=== PATIENT | male | born 1945 | race Hispanic/Latino ===

== ENCOUNTER 2017-10-11 11:35 | Inpatient (IN) | payer MEDICARE ==
[2017-10-11 11:49] VITALS: BMI 19.3
[2017-10-11] MEDS ORDERED: Piperacill/Tazo 4.5gm in Dex 4.5 GM/100 ML BAG IVPB STA (12:05)
[2017-10-11 12:28] LABS: BASO # 0.1 K/uL (0.0-0.2); BASO % 0.5 % (0.0-2.0); HEMATOCRIT 43.7 % (35.0-51.0); LYMPH # 2.1 K/uL (1.0-4.3); LYMPH % 17.3 % (20.0-40.0); MEAN CORPUSCULAR HEMOGLOBIN 28.3 pg (27.0-31.0); MEAN CORPUSCULAR HGB CONC 32.5 g/dL (33.0-37.0); MEAN PLATELET VOLUME 8.5 fL (7.2-11.7); MONO # 1.3 K/uL (0.0-0.8); NRBC % 0.1 % (0.0-2.0); PLATELET COUNT 307 K/uL (130-400); RED CELL DISTRIBUTION WIDTH 15.8 % (11.5-14.5); VENOUS BLOOD GAS BASE EXCESS -2.9 mmol/L (0.0-2.0); VENOUS BLOOD GAS PCO2 41 mmHg (40-60); VENOUS BLOOD PH 7.35 (7.32-7.43); WHITE BLOOD COUNT 11.9 K/uL (4.8-10.8)
[2017-10-11 12:36] LABS: INR 1.4
[2017-10-11 12:49] LABS: ABG ALLEN TEST POS; DRAW SITE LR
[2017-10-11 12:58] LABS: METAMYELOCYTE 1 % (0-0); NEUTROPHIL 30 % (50-75); TOTAL CELLS COUNTED 100
[2017-10-11 13:13] LABS: BILIRUBIN,TOTAL 1.1 mg/dL (0.2-1.3); CALCIUM 8.2 mg/dl (8.6-10.4); TOTAL PROTEIN 5.8 g/dL (6.3-8.3)
[2017-10-11 13:14] LABS: RBC URINE 2 /hpf (0-3); URINE BACTERIA OCC (<OCC); URINE BILIRUBIN NEGATIVE (NEGATIVE); URINE BLOOD NEGATIVE (NEGATIVE); URINE COLOR Amber (YELLOW); URINE GLUCOSE (UA) NORMAL (Normal); URINE KETONE NEGATIVE (NEGATIVE); URINE LEUKOCYTE ESTERASE TRACE Leu/uL (Negative); URINE PROTEIN 1+ mg/dL (NEGATIVE); URINE UROBILINOGEN NORMAL mg/dL (0.2-1.0); WBC URINE 7 /hpf (0-5)
[2017-10-11 13:16] LABS: ALB/GLOB RATIO 0.7 (1.0-2.1); PHOSPHOROUS 4.2 mg/dL (2.5-4.5); POTASSIUM 3.9 mmol/L (3.6-5.2)
--- NOTE | 2017-10-11 13:34 | RAD ---
HISTORY: Sepsis Patient COMPARISON: No prior. FINDINGS: LUNGS: There are low lung volumes. There is dense consolidation in the right mid lung and lower lobe. PLEURA: No large pleural effusions, no pneumothorax apparent. CARDIOVASCULAR: Normal. OSSEOUS STRUCTURES: No significant abnormalities. VISUALIZED UPPER ABDOMEN: Normal. OTHER FINDINGS: None. IMPRESSION: Right lower lobe pneumonia. Follow-up is advised.
--- NOTE | 2017-10-11 16:24 | CP.PCM.CON ---
History of Present Illness - History of Present Illness History of Present Illness: 72 year old male who was brought in by ambulance from a [facility] after he was found to be febrile with altered mental status, and low oxygen saturation of 86% on 100% NRB mask. Patient had recent placement of peg tube with drain. While in the ED, patient received Vancomycin 1g IV. At bedside, patient was saturating 95% with an FiO2 of 80% on BIPAP, requiring care in the ICU. Patient is able to follow commands. Patient was unable to provide history. Past Patient History - Infectious Disease Hx of Infectious Diseases: None - Past Social History Smoking Status: Unknown If Ever Smoked - CARDIAC Hx Hypertension: Yes - NEUROLOGICAL HX Cerebrovascular Accident: Yes Hx Dementia: Yes Other/Comment: Aphasia. Left sided weakness-. Hemiparesis. Hemiplegia - MUSCULOSKELETAL/RHEUMATOLOGICAL Other/Comment: Hemiplegia. Hemiparesis - PSYCHIATRIC Hx Substance Use: No (unknown) Other/Comment: dementia - SURGICAL HISTORY Other/Comment: Peg Tube Meds Allergies/Adverse Reactions: Allergies Allergy/AdvReac Type Severity Reaction Status Date / Time No Known Allergies Allergy Unverified 10/11/17 11:54 Results - Vital Signs Recent Vital Signs: Last Vital Signs Temp 97.9 F 10/11/17 14:56 Pulse 89 10/11/17 14:56 Resp 32 H 10/11/17 14:56 BP 128/55 L 10/11/17 14:56 Pulse Ox 97 10/11/17 14:56 - Labs Result Diagrams: 10/11/17 12:24 10/11/17 12:57 Labs: Laboratory Results - last 24 hr 10/11/17 10/11/17 10/11/17 12:08 12:24 12:24 WBC 11.9 H RBC 5.02 Hgb 14.2 Hct 43.7 MCV 87.0 MCH 28.3 MCHC 32.5 L RDW 15.8 H Plt Count 307 MPV 8.5 Neut % (Auto) 71.2 Lymph % (Auto) 17.3 L [place] % (Auto) 11.0 H Eos % (Auto) 0.0 Baso % (Auto) 0.5 Neut # 8.5 H Lymph # 2.1 [place] # 1.3 H Eos # 0.0 Baso # 0.1 Neutrophils % (Manual) 30 L Band Neutrophils % 28 H* Lymphocytes % (Manual) 28 Monocytes % (Manual) 12 H Metamyelocytes % 1 H Plasma Cell % (Manual) 1 H Platelet Estimate Normal Anisocytosis (manual) Slight Ovalocytes Slight PT 15.9 H INR 1.4 APTT 30 Puncture Site pCO2 pO2 HCO3 ABG pH ABG Total CO2 ABG O2 Saturation ABG Base Excess Sanjay Test ABG Potassium VBG pH VBG pCO2 VBG HCO3 VBG Total CO2 VBG O2 Sat (Calc) VBG Base Excess VBG Potassium A-a O2 Difference Respiratory Index Sodium Chloride Glucose Lactate Liter Flow FiO2 Crit Value Called To Crit Value Called By Crit Value Read Back Blood Gas Notified Time Potassium Carbon Dioxide Anion Gap BUN Creatinine Est GFR ( Amer) Est GFR (Non-Af Amer) POC Glucose (mg/dL) Random Glucose Calcium Phosphorus Magnesium Total Bilirubin AST ALT Alkaline Phosphatase Total Protein Albumin Globulin Albumin/Globulin Ratio Arterial Blood Potassium Venous Blood Potassium Urine Color Urine Clarity Urine pH Ur Specific [place] Urine Protein Urine Glucose (UA) Urine Ketones Urine Blood Urine Nitrate Urine Bilirubin Urine Urobilinogen Ur Leukocyte Esterase Urine WBC (Auto) Urine RBC (Auto) Ur Squamous Epith Cells Urine Bacteria Hyaline Casts Influenza Typ A,B (EIA) Negative for flu a/b 10/11/17 10/11/17 10/11/17 12:24 12:31 12:44 WBC RBC Hgb Hct MCV MCH MCHC RDW Plt Count MPV Neut % (Auto) Lymph % (Auto) [place] % (Auto) Eos % (Auto) Baso % (Auto) Neut # Lymph # [place] # Eos # Baso # Neutrophils % (Manual) Band Neutrophils % Lymphocytes % (Manual) Monocytes % (Manual) Metamyelocytes % Plasma Cell % (Manual) Platelet Estimate Anisocytosis (manual) Ovalocytes PT INR APTT Puncture Site Lr pCO2 30 L pO2 24 L 92 HCO3 20.6 L ABG pH 7.39 ABG Total CO2 19.1 L ABG O2 Saturation 99.1 H ABG Base Excess -5.6 L Sanjay Test Pos ABG Potassium 3.3 L VBG pH 7.35 VBG pCO2 41 VBG HCO3 21.1 VBG Total CO2 23.9 VBG O2 Sat (Calc) 38.6 L VBG Base Excess -2.9 L VBG Potassium 4.1 A-a O2 Difference 584.0 Respiratory Index 6.3 Sodium 147.0 145.0 Chloride 109.0 H 112.0 H Glucose 134 H 134 H Lactate 4.6 H* 5.2 H* Liter Flow 15.0 FiO2 100.0 Crit Value Called To Dr radha maza Crit Value Called By Tiki paul mailing section clerk Tiki paul mailing section clerk Crit Value Read Back Y Y Blood Gas Notified Time 1228 1250 Potassium Carbon Dioxide Anion Gap BUN Creatinine Est GFR ( Amer) Est GFR (Non-Af Amer) POC Glucose (mg/dL) 137 H Random Glucose Calcium Phosphorus Magnesium Total Bilirubin AST ALT Alkaline Phosphatase Total Protein Albumin Globulin Albumin/Globulin Ratio Arterial Blood Potassium 3.3 L Venous Blood Potassium 4.1 Urine Color Urine Clarity Urine pH Ur Specific [place] Urine Protein Urine Glucose (UA) Urine Ketones Urine Blood Urine Nitrate Urine Bilirubin Urine Urobilinogen Ur Leukocyte Esterase Urine WBC (Auto) Urine RBC (Auto) Ur Squamous Epith Cells Urine Bacteria Hyaline Casts Influenza Typ A,B (EIA) 10/11/17 10/11/17 12:54 12:57 WBC RBC Hgb Hct MCV MCH MCHC RDW Plt Count MPV Neut % (Auto) Lymph % (Auto) [place] % (Auto) Eos % (Auto) Baso % (Auto) Neut # Lymph # [place] # Eos # Baso # Neutrophils % (Manual) Band Neutrophils % Lymphocytes % (Manual) Monocytes % (Manual) Metamyelocytes % Plasma Cell % (Manual) Platelet Estimate Anisocytosis (manual) Ovalocytes PT INR APTT Puncture Site pCO2 pO2 HCO3 ABG pH ABG Total CO2 ABG O2 Saturation ABG Base Excess [place] Test ABG Potassium VBG pH VBG pCO2 VBG HCO3 VBG Total CO2 VBG O2 Sat (Calc) VBG Base Excess VBG Potassium A-a O2 Difference Respiratory Index Sodium 143 Chloride 113 H Glucose Lactate Liter Flow FiO2 Crit Value Called To Crit Value Called By Crit Value Read Back Blood Gas Notified Time Potassium 3.9 Carbon Dioxide 22 Anion Gap 12 BUN 42 H Creatinine 2.6 H Est GFR ( Amer) 30 Est GFR (Non-Af Amer) 24 POC Glucose (mg/dL) Random Glucose 125 H Calcium 8.2 L Phosphorus 4.2 Magnesium 2.0 Total Bilirubin 1.1 AST 42 ALT 49 Alkaline Phosphatase 43 Total Protein 5.8 L Albumin 2.3 L Globulin 3.4 Albumin/Globulin Ratio 0.7 L Arterial Blood Potassium Venous Blood Potassium Urine Color Aliza Urine Clarity Clear Urine pH 5.0 Ur Specific [place] 1.021 Urine Protein 1+ H Urine Glucose (UA) Normal Urine Ketones Negative Urine Blood Negative Urine Nitrate Negative Urine Bilirubin Negative Urine Urobilinogen Normal Ur Leukocyte Esterase Trace Urine WBC (Auto) 7 H Urine RBC (Auto) 2 Ur Squamous Epith Cells < 1 Urine Bacteria Occ H Hyaline Casts 3-5 H Influenza Typ A,B (EIA) Assessment & Plan - Assessment and Plan (Free Text) Assessment: Patient is a 72 year old male presenting to the hospital for fever, altered mental status and low oxygenation saturation. He was saturating at 95% despite 80% of FiO2 on BIPAP, requiring admission to ICU for further evaluation. Sepsis: ID: Febrile to 101.4 WBC 11.9 with bands of 28 Lactate 4.6 --> 5.2 Blood cultures x2 pending Urine cultures pending ABx: vanco + zosyn ID consulted, help appreciated? Pulmonary: CXR from 10/11/17: Right lower lobe pneumonia AB.39/30/92/20.6 Hypoxic respiratory failure, suspect aspiration, peg to gravity drain negative for influenza a/b Renal: BUN 42/Cr 2.6 -YUE: place [place] and continue gentle hydration, avoid any nephrotoxic drugs Prophylactic care: DVTs: SCDs, Lovenox 40mg SC daily? GI: Protonix 40mg IVP daily d/w daughter who had been the health care agent. Daughter requested DNR/DNI, (witnessed by ARSEN Claros) cc time - Date & Time Date: 10/11/17 Time: 17:56
[2017-10-11 16:29] LABS: ABG ALLEN TEST POS; DRAW SITE RBA
--- NOTE | 2017-10-11 16:47 | C.PDOC ---
History Of Present Illness 72 y/o male sent to ED from long term after being found lethargic, febrile, tachycardic, and hypotensive. In the ER, pt is unresponsive. Limited history at this time. Time Seen by Provider: 10/11/17 11:55 Chief Complaint (Nursing): Respiratory Distress History Per: Patient History/Exam Limitations: Clinical Condition Additional History Per: [facility] Past Medical History Reviewed: Historical Data, Nursing Documentation, Vital Signs Vital Signs: Last Vital Signs Temp 97.9 F 10/11/17 14:56 Pulse 89 10/11/17 16:10 Resp 32 H 10/11/17 14:56 BP 128/55 L 10/11/17 14:56 Pulse Ox 97 10/11/17 16:59 - Medical History PMH: Dementia, HTN, Hyperlipidemia Family History: States: Unknown Family Hx - Social History Hx Alcohol Use: No (unknown) Hx Substance Use: No (unknown) - Immunization History Hx Tetanus Toxoid Vaccination: (unknown) Hx Influenza Vaccination: (unknown) Hx Pneumococcal Vaccination: (unknown) Review Of Systems Review Of Systems: ROS cannot be obtained secondary to pt's inabilty to answer questions. Physical Exam - Physical Exam Appears: Non-toxic, Other (moderate to severe respiratory distress) Skin: Normal Color, Warm, Dry Head: Atraumatic, Normacephalic Eye(s): bilateral: Normal Inspection Oral Mucosa: Moist Chest: Symmetrical Cardiovascular: Other (tachycardic) Respiratory: No Rales, No Rhonchi, No Wheezing, Other (coarse breath sounds bilaterally, right more than left) Gastrointestinal/Abdominal: Bowel Sounds, Soft, No Tenderness, Other (peg tube intact) Extremity: Normal ROM, Pedal Edema Neurological/Psych: Other (not responding to verbal stimuli) ED Course And Treatment - Laboratory Results Result Diagrams: 10/11/17 12:24 10/11/17 12:57 O2 Sat by Pulse Oximetry: 97 Pulse Ox Interpretation: Normal Progress Note: Blood work, UA, influenza AB, CXR, EKG ordered and reviewed. Pt was given Zosyn, Vancomycin, and Tylenol. Spoke to daughter, informed pt is full code. Spoke with paper stacker diffusion furnace operator. Pt reported to resuscitation and antipyretics. Pt was placed on BIPAP. Pt will be admitted to ICU under Dr. Jack Trinh's service. Critical Care Time - Critical Care Note Total Time (in mins): 60 Documented critical care: time excludes all time spent performing seperately billable procedures. Disposition - Disposition Disposition: HOSPITALIZED Disposition Time: 13:30 Condition: SERIOUS - Clinical Impression Clinical Impression: Sepsis, Pneumonia, Hypotension, Respiratory failure - Scribe Statement The provider has reviewed the documentation as recorded by the Juaniibe Marily Trinh All medical record entries made by the Juaniibdevorah were at my direction and personally dictated by me. I have reviewed the chart and agree that the record accurately reflects my personal performance of the history, physical exam, medical decision making, and the department course for this patient. I have also personally directed, reviewed, and agree with the discharge instructions and disposition.
--- NOTE | 2017-10-11 17:38 | CP.PCM.HP ---
Past Patient History - Infectious Disease Hx of Infectious Diseases: None - Past Social History Smoking Status: Unknown If Ever Smoked - CARDIAC Hx Hypertension: Yes - NEUROLOGICAL Hx Dementia: Yes - MUSCULOSKELETAL/RHEUMATOLOGICAL Other/Comment: Hemiplegia. Hemiparesis - PSYCHIATRIC Hx Substance Use: No (unknown) - SURGICAL HISTORY Other/Comment: Peg Tube Meds Allergies/Adverse Reactions: Allergies Allergy/AdvReac Type Severity Reaction Status Date / Time No Known Allergies Allergy Unverified 10/11/17 11:54 Results - Vital Signs Recent Vital Signs: Last Vital Signs Temp 97.9 F 10/11/17 14:56 Pulse 89 10/11/17 16:10 Resp 32 H 10/11/17 14:56 BP 128/55 L 10/11/17 14:56 Pulse Ox 97 10/11/17 16:59 - Labs Result Diagrams: 10/11/17 12:24 10/11/17 12:57 Labs: Laboratory Results - last 24 hr 10/11/17 10/11/17 10/11/17 12:08 12:24 12:24 WBC 11.9 H RBC 5.02 Hgb 14.2 Hct 43.7 MCV 87.0 MCH 28.3 MCHC 32.5 L RDW 15.8 H Plt Count 307 MPV 8.5 Neut % (Auto) 71.2 Lymph % (Auto) 17.3 L [place] % (Auto) 11.0 H Eos % (Auto) 0.0 Baso % (Auto) 0.5 Neut # 8.5 H Lymph # 2.1 [place] # 1.3 H Eos # 0.0 Baso # 0.1 Neutrophils % (Manual) 30 L Band Neutrophils % 28 H* Lymphocytes % (Manual) 28 Monocytes % (Manual) 12 H Metamyelocytes % 1 H Plasma Cell % (Manual) 1 H Platelet Estimate Normal Anisocytosis (manual) Slight Ovalocytes Slight PT 15.9 H INR 1.4 APTT 30 Puncture Site pCO2 pO2 HCO3 ABG pH ABG Total CO2 ABG O2 Saturation ABG Base Excess Sanjay Test ABG Potassium VBG pH VBG pCO2 VBG HCO3 VBG Total CO2 VBG O2 Sat (Calc) VBG Base Excess VBG Potassium A-a O2 Difference Respiratory Index Sodium Chloride Glucose Lactate Liter Flow FiO2 Inspiratory BiPAP Expiratory BiPAP Crit Value Called To Crit Value Called By Crit Value Read Back Blood Gas Notified Time Potassium Carbon Dioxide Anion Gap BUN Creatinine Est GFR ( Amer) Est GFR (Non-Af Amer) POC Glucose (mg/dL) Random Glucose Calcium Phosphorus Magnesium Total Bilirubin AST ALT Alkaline Phosphatase Total Protein Albumin Globulin Albumin/Globulin Ratio Arterial Blood Potassium Venous Blood Potassium Urine Color Urine Clarity Urine pH Ur Specific [place] Urine Protein Urine Glucose (UA) Urine Ketones Urine Blood Urine Nitrate Urine Bilirubin Urine Urobilinogen Ur Leukocyte Esterase Urine WBC (Auto) Urine RBC (Auto) Ur Squamous Epith Cells Urine Bacteria Hyaline Casts Influenza Typ A,B (EIA) Negative for flu a/b 10/11/17 10/11/17 10/11/17 12:24 12:31 12:44 WBC RBC Hgb Hct MCV MCH MCHC RDW Plt Count MPV Neut % (Auto) Lymph % (Auto) [place] % (Auto) Eos % (Auto) Baso % (Auto) Neut # Lymph # [place] # Eos # Baso # Neutrophils % (Manual) Band Neutrophils % Lymphocytes % (Manual) Monocytes % (Manual) Metamyelocytes % Plasma Cell % (Manual) Platelet Estimate Anisocytosis (manual) Ovalocytes PT INR APTT Puncture Site Lr pCO2 30 L pO2 24 L 92 HCO3 20.6 L ABG pH 7.39 ABG Total CO2 19.1 L ABG O2 Saturation 99.1 H ABG Base Excess -5.6 L Sanjay Test Pos ABG Potassium 3.3 L VBG pH 7.35 VBG pCO2 41 VBG HCO3 21.1 VBG Total CO2 23.9 VBG O2 Sat (Calc) 38.6 L VBG Base Excess -2.9 L VBG Potassium 4.1 A-a O2 Difference 584.0 Respiratory Index 6.3 Sodium 147.0 145.0 Chloride 109.0 H 112.0 H Glucose 134 H 134 H Lactate 4.6 H* 5.2 H* Liter Flow 15.0 FiO2 100.0 Inspiratory BiPAP Expiratory BiPAP Crit Value Called To Dr radha maza Crit Value Called By Tiki paul brick tester Tiki paul brick tester Crit Value Read Back Y Y Blood Gas Notified Time 1228 1250 Potassium Carbon Dioxide Anion Gap BUN Creatinine Est GFR ( Amer) Est GFR (Non-Af Amer) POC Glucose (mg/dL) 137 H Random Glucose Calcium Phosphorus Magnesium Total Bilirubin AST ALT Alkaline Phosphatase Total Protein Albumin Globulin Albumin/Globulin Ratio Arterial Blood Potassium 3.3 L Venous Blood Potassium 4.1 Urine Color Urine Clarity Urine pH Ur Specific [place] Urine Protein Urine Glucose (UA) Urine Ketones Urine Blood Urine Nitrate Urine Bilirubin Urine Urobilinogen Ur Leukocyte Esterase Urine WBC (Auto) Urine RBC (Auto) Ur Squamous Epith Cells Urine Bacteria Hyaline Casts Influenza Typ A,B (EIA) 10/11/17 10/11/17 10/11/17 12:54 12:57 16:25 WBC RBC Hgb Hct MCV MCH MCHC RDW Plt Count MPV Neut % (Auto) Lymph % (Auto) [place] % (Auto) Eos % (Auto) Baso % (Auto) Neut # Lymph # [place] # Eos # Baso # Neutrophils % (Manual) Band Neutrophils % Lymphocytes % (Manual) Monocytes % (Manual) Metamyelocytes % Plasma Cell % (Manual) Platelet Estimate Anisocytosis (manual) Ovalocytes PT INR APTT Puncture Site Rba pCO2 32 L pO2 69 L HCO3 23.0 ABG pH 7.43 ABG Total CO2 22.2 ABG O2 Saturation 96.7 ABG Base Excess -2.3 L Sanjay Test Pos ABG Potassium 3.3 L VBG pH VBG pCO2 VBG HCO3 VBG Total CO2 VBG O2 Sat (Calc) VBG Base Excess VBG Potassium A-a O2 Difference 319.0 Respiratory Index 4.6 Sodium 143 145.0 Chloride 113 H 113.0 H Glucose 162 H Lactate 3.3 H Liter Flow FiO2 60.0 Inspiratory BiPAP 12 Expiratory BiPAP 6 Crit Value Called To Crit Value Called By Crit Value Read Back Blood Gas Notified Time Potassium 3.9 Carbon Dioxide 22 Anion Gap 12 BUN 42 H Creatinine 2.6 H Est GFR ( Amer) 30 Est GFR (Non-Af Amer) 24 POC Glucose (mg/dL) Random Glucose 125 H Calcium 8.2 L Phosphorus 4.2 Magnesium 2.0 Total Bilirubin 1.1 AST 42 ALT 49 Alkaline Phosphatase 43 Total Protein 5.8 L Albumin 2.3 L Globulin 3.4 Albumin/Globulin Ratio 0.7 L Arterial Blood Potassium 3.3 L Venous Blood Potassium Urine Color Aliza Urine Clarity Clear Urine pH 5.0 Ur Specific [place] 1.021 Urine Protein 1+ H Urine Glucose (UA) Normal Urine Ketones Negative Urine Blood Negative Urine Nitrate Negative Urine Bilirubin Negative Urine Urobilinogen Normal Ur Leukocyte Esterase Trace Urine WBC (Auto) 7 H Urine RBC (Auto) 2 Ur Squamous Epith Cells < 1 Urine Bacteria Occ H Hyaline Casts 3-5 H Influenza Typ A,B (EIA)
[2017-10-11] MEDS ORDERED: Sodium Chloride 0.9% 1,000 ML IV SCH (18:00)
--- NOTE | 2017-10-11 19:53 | PCM.SEPTIC ---
<Nicola Torres - Last Filed: 10/11/17 19:51> Sepsis Progress Note - Reassessment Type Date of Evaluation: 10/11/17 Time of Evaluation: 16:00 Reassessment Type: Non-invasive reassessment - Non Invasive Reassessment Were the most recent vital sign reviewed: Yes Vital Sign (Latest): Temp Pulse Resp BP Pulse Ox 97.3 F L 89 28 H 128/55 L 97 10/11/17 15:36 10/11/17 16:10 10/11/17 15:35 10/11/17 14:56 10/11/17 18:16 Cardiovascular: Yes: Regular Rate, Rhythm, Chest Non Tender Respiratory: Yes: Normal Breath Sounds. No: Accessory Muscle Use, Crackles, Rales, Rhonchi, Respiratory Distress Capillary Refill: Normal (Less than 2 sec) Pulses: Normal Radial, Normal Dorsalis Pedis, Normal Posterior Tibialis Skin: Normal Color, Warm <Janis Trinh M - Last Filed: 10/12/17 07:15> Sepsis Progress Note - Non Invasive Reassessment Vital Sign (Latest): Temp Pulse Resp BP Pulse Ox 97.8 F 86 21 130/75 97 10/12/17 04:00 10/12/17 04:30 10/12/17 04:30 10/12/17 04:06 10/12/17 04:30
[2017-10-11] MEDS: Piperacill/Tazo 2.25gm in Dex 2.25 GM/50 ML BAG IVPB SCH (21:17)
[2017-10-12] MEDS: Piperacill/Tazo 2.25gm in Dex 2.25 GM/50 ML BAG IVPB SCH ×3 (04:47→21:00)
[2017-10-12 06:19] LABS: BASO % 0.6 % (0.0-2.0); EOS # 0.1 K/uL (0.0-0.7); EOS % 0.7 % (0.0-4.0); HEMATOCRIT 37.3 % (35.0-51.0); LYMPH # 1.3 K/uL (1.0-4.3); LYMPH % 17.9 % (20.0-40.0); MEAN CELL VOLUME 87.1 fL (80.0-94.0); MEAN CORPUSCULAR HEMOGLOBIN 29.1 pg (27.0-31.0); MEAN CORPUSCULAR HGB CONC 33.4 g/dL (33.0-37.0); MEAN PLATELET VOLUME 8.3 fL (7.2-11.7); MONO # 0.9 K/uL (0.0-0.8); MONO % 11.8 % (0.0-10.0); NRBC % 0.1 % (0.0-2.0); RED CELL DISTRIBUTION WIDTH 15.5 % (11.5-14.5); WHITE BLOOD COUNT 7.5 K/uL (4.8-10.8)
[2017-10-12 06:27] LABS: ALB/GLOB RATIO 0.7 (1.0-2.1); BILIRUBIN,TOTAL 0.7 mg/dL (0.2-1.3); MAGNESIUM 1.9 mg/dL (1.6-2.3); PHOSPHOROUS 4.4 mg/dL (2.5-4.5); POTASSIUM 3.3 mmol/L (3.6-5.2); TOTAL PROTEIN 5.6 g/dL (6.3-8.3)
[2017-10-12] MEDS ORDERED: Potassium Chloride 20 mEq/15 ml LIQ UD GT ONE (08:30)
--- NOTE | 2017-10-12 08:58 | RAD ---
Chest x-ray single frontal view History: Congestion. Comparison: 10/11/2017 Findings: Moderate venous congestion. Diffuse confluent consolidative changes seen throughout the right mid to lower lung zone as well as the left hilar region and left lung base. Biapical pleural thickening. Surgical clips project over the medial left hemithorax. Degenerative changes in the spine. Heart size within normal limits. Impression : Moderate venous congestion. Diffuse confluent consolidative changes seen throughout the right mid to lower lung zone as well as the left hilar region and left lung base. Biapical pleural thickening. Surgical clips project over the medial left hemithorax.
--- NOTE | 2017-10-12 14:39 | CP.CCUPN ---
CCU Subjective - Physician Review Subjective (Free Text): 10/12/17 14:37 PAtient tolerated bi-pap overnight, toleraring aerosol mask. no fevers overnight , lasix given over night CCU Objective - Vital Signs / Intake & Output Vital Signs (Last 4 hours): Vital Signs Temp Pulse BP Pulse Ox 10/12/17 12:06 115 H 108/64 89 L 10/12/17 12:00 98.0 F 103 H 87 L 10/12/17 11:05 107 H 144/89 89 L 10/12/17 11:00 101 H 94 L Intake and Output (Last 8hrs): Intake & Output 10/11/17 10/12/17 10/12/17 22:59 06:59 14:59 Intake Total 505 540 140 Output Total 155 755 380 Balance 350 -215 -240 Weight 133 lb 2.547 oz Intake: Intake, IV Amount 505 540 140 Right Antecubital 505 540 140 Oral 0 Output: Gastric Amount 300 Stomach 300 Urine 155 455 380 Urethral (Manley) 155 455 380 Emesis 0 Other: Voiding Method Indwelling Catheter # Bowel Movements 0 0 - Physical Exam Physical Exam Limitations: Positive for: Altered Mental Status, Uncooperative Mouth: Positive for: Moist Mucous Membranes Respiratory/Chest: Positive for: Good Air Exchange, Rhonchi, Tachypneic Cardiovascular: Positive for: Regular Rate and Rhythm, Murmurs, Normal S1, S2 Abdomen: Positive for: Normal Bowel Sounds, Other (PEG Tube in place) Other physical findings (Free Text): Left sided hemiplegia - Medications Active Medications: Active Medications Generic Name Dose Route Start Last Admin Trade Name Freq PRN Reason Stop Dose Admin Aspirin 81 mg 10/12/17 10:00 10/12/17 09:16 Ecotrin PO 81 mg DAILY SHAHRZAD Administration Bisacodyl 10 mg 10/12/17 08:23 10/12/17 09:16 Dulcolax [place] 10 mg DAILY PRN Administration Constipation Famotidine 20 mg 10/12/17 10:00 10/12/17 09:16 Pepcid PO 20 mg DAILY SHAHRZAD Administration Heparin Sodium (Porcine) 5,000 units 10/11/17 18:15 10/12/17 05:26 Heparin SC 5,000 units Q12H SHAHRZAD Administration Piperacillin Sod/Tazobactam Sod 2.25 gm in 50 mls @ 100 mls/hr 10/11/17 21:00 10/12/17 12:43 Zosyn 2.25 Gm Iv Premix IVPB 100 mls/hr Q8H SHAHRZAD Administration Rosuvastatin Calcium 5 mg 10/12/17 22:00 Crestor PO HS SHAHRZAD - Patient Studies Lab Studies: Microbiology Studies 10/11/17 12:05 Urine Culture - Final Urine,Manley No Growth (<1,000 CFU/ML) Lab Studies 10/12/17 10/12/17 10/12/17 Range/Units 12:08 06:00 06:00 WBC 7.5 (4.8-10.8) K/uL RBC 4.28 L (4.40-5.90) Mil/uL Hgb 12.5 (12.0-18.0) g/dL Hct 37.3 (35.0-51.0) % MCV 87.1 (80.0-94.0) fL MCH 29.1 (27.0-31.0) pg MCHC 33.4 (33.0-37.0) g/dL RDW 15.5 H (11.5-14.5) % Plt Count 190 D (130-400) K/uL MPV 8.3 (7.2-11.7) fL Neut % (Auto) 69.0 (50.0-75.0) % Lymph % (Auto) 17.9 L (20.0-40.0) % [place] % (Auto) 11.8 H (0.0-10.0) % Eos % (Auto) 0.7 (0.0-4.0) % Baso % (Auto) 0.6 (0.0-2.0) % Neut # 5.1 (1.8-7.0) K/uL Lymph # 1.3 (1.0-4.3) K/uL [place] # 0.9 H (0.0-0.8) K/uL Eos # 0.1 (0.0-0.7) K/uL Baso # 0.0 (0.0-0.2) K/uL Puncture Site pCO2 (35-45) mm/Hg pO2 (80-100) mm/Hg HCO3 (21-28) mmol/L ABG pH (7.35-7.45) ABG Total CO2 (22-28) mmol/L ABG O2 Saturation (95-98) % ABG Base Excess (-2.0-3.0) mmol/L Sanjay Test ABG Potassium (3.6-5.2) mmol/L A-a O2 Difference mm/Hg Respiratory Index Sodium 145 (132-148) mmol/l Chloride 113 H (98-107) mmol/L Glucose (75-110) mg/dl Lactate (0.7-2.1) mmol/L FiO2 % Inspiratory BiPAP Expiratory BiPAP Potassium 3.3 L (3.6-5.2) mmol/L Carbon Dioxide 27 (22-30) mmol/L Anion Gap 9 L (10-20) BUN 54 H (9-20) mg/dL Creatinine 1.8 H (0.8-1.5) mg/dL Est GFR ( Amer) 45 Est GFR (Non-Af Amer) 37 POC Glucose (mg/dL) 112 H (65-110) mg/dL Random Glucose 112 H (75-110) mg/dL Lactic Acid (0.7-2.1) mmol/L Calcium 8.0 L (8.6-10.4) mg/dl Phosphorus 4.4 (2.5-4.5) mg/dL Magnesium 1.9 (1.6-2.3) mg/dL Total Bilirubin 0.7 (0.2-1.3) mg/dL AST 41 (17-59) U/L ALT 54 (21-72) U/L Alkaline Phosphatase 40 (38-126) U/L Total Protein 5.6 L (6.3-8.3) g/dL Albumin 2.3 L (3.5-5.0) g/dL Globulin 3.3 (2.2-3.9) gm/dL Albumin/Globulin Ratio 0.7 L (1.0-2.1) Arterial Blood Potassium (3.6-5.2) mmol/L Random Vancomycin ug/mL 10/12/17 10/12/17 10/12/17 Range/Units 06:00 06:00 05:54 WBC (4.8-10.8) K/uL RBC (4.40-5.90) Mil/uL Hgb (12.0-18.0) g/dL Hct (35.0-51.0) % MCV (80.0-94.0) fL MCH (27.0-31.0) pg MCHC (33.0-37.0) g/dL RDW (11.5-14.5) % Plt Count (130-400) K/uL MPV (7.2-11.7) fL Neut % (Auto) (50.0-75.0) % Lymph % (Auto) (20.0-40.0) % [place] % (Auto) (0.0-10.0) % Eos % (Auto) (0.0-4.0) % Baso % (Auto) (0.0-2.0) % Neut # (1.8-7.0) K/uL Lymph # (1.0-4.3) K/uL [place] # (0.0-0.8) K/uL Eos # (0.0-0.7) K/uL Baso # (0.0-0.2) K/uL Puncture Site pCO2 (35-45) mm/Hg pO2 (80-100) mm/Hg HCO3 (21-28) mmol/L ABG pH (7.35-7.45) ABG Total CO2 (22-28) mmol/L ABG O2 Saturation (95-98) % ABG Base Excess (-2.0-3.0) mmol/L Sanjay Test ABG Potassium (3.6-5.2) mmol/L A-a O2 Difference mm/Hg Respiratory Index Sodium (132-148) mmol/l Chloride (98-107) mmol/L Glucose (75-110) mg/dl Lactate (0.7-2.1) mmol/L FiO2 % Inspiratory BiPAP Expiratory BiPAP Potassium (3.6-5.2) mmol/L Carbon Dioxide (22-30) mmol/L Anion Gap (10-20) BUN (9-20) mg/dL Creatinine (0.8-1.5) mg/dL Est GFR ( Amer) Est GFR (Non-Af Amer) POC Glucose (mg/dL) 107 (65-110) mg/dL Random Glucose (75-110) mg/dL Lactic Acid 1.8 (0.7-2.1) mmol/L Calcium (8.6-10.4) mg/dl Phosphorus (2.5-4.5) mg/dL Magnesium (1.6-2.3) mg/dL Total Bilirubin (0.2-1.3) mg/dL AST (17-59) U/L ALT (21-72) U/L Alkaline Phosphatase (38-126) U/L Total Protein (6.3-8.3) g/dL Albumin (3.5-5.0) g/dL Globulin (2.2-3.9) gm/dL Albumin/Globulin Ratio (1.0-2.1) Arterial Blood Potassium (3.6-5.2) mmol/L Random Vancomycin 12.83 ug/mL 10/11/17 10/11/17 Range/Units 23:37 16:25 WBC (4.8-10.8) K/uL RBC (4.40-5.90) Mil/uL Hgb (12.0-18.0) g/dL Hct (35.0-51.0) % MCV (80.0-94.0) fL MCH (27.0-31.0) pg MCHC (33.0-37.0) g/dL RDW (11.5-14.5) % Plt Count (130-400) K/uL MPV (7.2-11.7) fL Neut % (Auto) (50.0-75.0) % Lymph % (Auto) (20.0-40.0) % [place] % (Auto) (0.0-10.0) % Eos % (Auto) (0.0-4.0) % Baso % (Auto) (0.0-2.0) % Neut # (1.8-7.0) K/uL Lymph # (1.0-4.3) K/uL [place] # (0.0-0.8) K/uL Eos # (0.0-0.7) K/uL Baso # (0.0-0.2) K/uL Puncture Site Rba pCO2 32 L (35-45) mm/Hg pO2 69 L (80-100) mm/Hg HCO3 23.0 (21-28) mmol/L ABG pH 7.43 (7.35-7.45) ABG Total CO2 22.2 (22-28) mmol/L ABG O2 Saturation 96.7 (95-98) % ABG Base Excess -2.3 L (-2.0-3.0) mmol/L Sanjay Test Pos ABG Potassium 3.3 L (3.6-5.2) mmol/L A-a O2 Difference 319.0 mm/Hg Respiratory Index 4.6 Sodium 145.0 (132-148) mmol/l Chloride 113.0 H (98-107) mmol/L Glucose 162 H (75-110) mg/dl Lactate 3.3 H (0.7-2.1) mmol/L FiO2 60.0 % Inspiratory BiPAP 12 Expiratory BiPAP 6 Potassium (3.6-5.2) mmol/L Carbon Dioxide (22-30) mmol/L Anion Gap (10-20) BUN (9-20) mg/dL Creatinine (0.8-1.5) mg/dL Est GFR ( Amer) Est GFR (Non-Af Amer) POC Glucose (mg/dL) 130 H (65-110) mg/dL Random Glucose (75-110) mg/dL Lactic Acid (0.7-2.1) mmol/L Calcium (8.6-10.4) mg/dl Phosphorus (2.5-4.5) mg/dL Magnesium (1.6-2.3) mg/dL Total Bilirubin (0.2-1.3) mg/dL AST (17-59) U/L ALT (21-72) U/L Alkaline Phosphatase (38-126) U/L Total Protein (6.3-8.3) g/dL Albumin (3.5-5.0) g/dL Globulin (2.2-3.9) gm/dL Albumin/Globulin Ratio (1.0-2.1) Arterial Blood Potassium 3.3 L (3.6-5.2) mmol/L Random Vancomycin ug/mL Laboratory Results - last 24 hr 10/11/17 10/11/17 10/12/17 16:25 23:37 05:54 WBC RBC Hgb Hct MCV MCH MCHC RDW Plt Count MPV Neut % (Auto) Lymph % (Auto) [place] % (Auto) Eos % (Auto) Baso % (Auto) Neut # Lymph # [place] # Eos # Baso # Puncture Site Rba pCO2 32 L pO2 69 L HCO3 23.0 ABG pH 7.43 ABG Total CO2 22.2 ABG O2 Saturation 96.7 ABG Base Excess -2.3 L Sanjay Test Pos ABG Potassium 3.3 L A-a O2 Difference 319.0 Respiratory Index 4.6 Sodium 145.0 Chloride 113.0 H Glucose 162 H Lactate 3.3 H FiO2 60.0 Inspiratory BiPAP 12 Expiratory BiPAP 6 Potassium Carbon Dioxide Anion Gap BUN Creatinine Est GFR ( Amer) Est GFR (Non-Af Amer) POC Glucose (mg/dL) 130 H 107 Random Glucose Lactic Acid Calcium Phosphorus Magnesium Total Bilirubin AST ALT Alkaline Phosphatase Total Protein Albumin Globulin Albumin/Globulin Ratio Arterial Blood Potassium 3.3 L Random Vancomycin 10/12/17 10/12/17 10/12/17 06:00 06:00 06:00 WBC 7.5 RBC 4.28 L Hgb 12.5 Hct 37.3 MCV 87.1 MCH 29.1 MCHC 33.4 RDW 15.5 H Plt Count 190 D MPV 8.3 Neut % (Auto) 69.0 Lymph % (Auto) 17.9 L [place] % (Auto) 11.8 H Eos % (Auto) 0.7 Baso % (Auto) 0.6 Neut # 5.1 Lymph # 1.3 [place] # 0.9 H Eos # 0.1 Baso # 0.0 Puncture Site pCO2 pO2 HCO3 ABG pH ABG Total CO2 ABG O2 Saturation ABG Base Excess Sanjay Test ABG Potassium A-a O2 Difference Respiratory Index Sodium Chloride Glucose Lactate FiO2 Inspiratory BiPAP Expiratory BiPAP Potassium Carbon Dioxide Anion Gap BUN Creatinine Est GFR ( Amer) Est GFR (Non-Af Amer) POC Glucose (mg/dL) Random Glucose Lactic Acid 1.8 Calcium Phosphorus Magnesium Total Bilirubin AST ALT Alkaline Phosphatase Total Protein Albumin Globulin Albumin/Globulin Ratio Arterial Blood Potassium Random Vancomycin 12.83 10/12/17 10/12/17 06:00 12:08 WBC RBC Hgb Hct MCV MCH MCHC RDW Plt Count MPV Neut % (Auto) Lymph % (Auto) [place] % (Auto) Eos % (Auto) Baso % (Auto) Neut # Lymph # [place] # Eos # Baso # Puncture Site pCO2 pO2 HCO3 ABG pH ABG Total CO2 ABG O2 Saturation ABG Base Excess Sanjay Test ABG Potassium A-a O2 Difference Respiratory Index Sodium 145 Chloride 113 H Glucose Lactate FiO2 Inspiratory BiPAP Expiratory BiPAP Potassium 3.3 L Carbon Dioxide 27 Anion Gap 9 L BUN 54 H Creatinine 1.8 H Est GFR ( Amer) 45 Est GFR (Non-Af Amer) 37 POC Glucose (mg/dL) 112 H Random Glucose 112 H Lactic Acid Calcium 8.0 L Phosphorus 4.4 Magnesium 1.9 Total Bilirubin 0.7 AST 41 ALT 54 Alkaline Phosphatase 40 Total Protein 5.6 L Albumin 2.3 L Globulin 3.3 Albumin/Globulin Ratio 0.7 L Arterial Blood Potassium Random Vancomycin EKG/Cardiology Studies: Cardiology / EKG Studies 10/11/17 18:12 EKG [ELECTROCARDIOGRAM] Stat Comment: Mode Of Transportation: PORTABLE Reason For Exam: admission Fingerstick Blood Sugar Results: 112 Assessment/Plan - Assessment and Plan (Free Text) Plan: Hypoxic respiratory failure: continue bi-pap and switch to aerosol mask as tolerated, no signs of Co2 retention -Sepsis not in shock: suspect aspiration: continue broad spectrum abx, serial lactic -YUE: improving creatinine, continue gentle hydration -Tube feeds to be started -CVA: chronic continue asa, statin -dvt ppx heparin -pud ppx pepcid -GOC: daughter requested DNR/DNi Patient remains stable. - Date & Time Date: 10/12/17 Time: 14:44
--- NOTE | 2017-10-12 16:38 | CP.PCM.PN ---
Subjective - Date & Time of Evaluation Date of Evaluation: 10/12/17 Time of Evaluation: 11:40 - Subjective Subjective: clinically same Objective - Vital Signs/Intake and Output Vital Signs (last 24 hours): Temp Pulse Resp BP Pulse Ox 98.1 F 106 H 32 H 146/72 94 L 10/12/17 15:59 10/12/17 16:00 10/12/17 16:00 10/12/17 15:05 10/12/17 16:00 Intake and Output: 10/12/17 10/12/17 06:59 18:59 Intake Total 835 140 Output Total 830 380 Balance 5 -240 - Medications Medications: Current Medications Aspirin (Ecotrin) 81 mg PO DAILY [facility] Last Admin: 10/12/17 09:16 Dose: 81 mg Bisacodyl (Dulcolax) 10 mg [place] DAILY PRN PRN Reason: Constipation Last Admin: 10/12/17 09:16 Dose: 10 mg Famotidine (Pepcid) 20 mg PO DAILY [facility] Last Admin: 10/12/17 09:16 Dose: 20 mg Heparin Sodium (Porcine) (Heparin) 5,000 units SC Q12H [facility] Last Admin: 10/12/17 05:26 Dose: 5,000 units Piperacillin Sod/Tazobactam Sod (Zosyn 2.25 Gm Iv Premix) 2.25 gm in 50 mls @ 100 mls/hr IVPB Q8H [facility] Last Admin: 10/12/17 12:43 Dose: 100 mls/hr Rosuvastatin Calcium (Crestor) 5 mg PO HS [facility] - Labs Labs: 10/12/17 06:00 10/12/17 06:00 PT 15.9 SECONDS (9.7-12.2) H 10/11/17 12:24 INR 1.4 10/11/17 12:24 APTT 30 SECONDS (21-34) 10/11/17 12:24 - Constitutional Appears: Well - Head Exam Head Exam: ATRAUMATIC, NORMAL INSPECTION, NORMOCEPHALIC - Eye Exam Eye Exam: EOMI, Normal appearance, PERRL Pupil Exam: NORMAL ACCOMODATION, PERRL - ENT Exam ENT Exam: Mucous Membranes Moist, Normal Exam - Neck Exam Neck Exam: Full ROM, Normal Inspection. absent: Lymphadenopathy - Respiratory Exam Respiratory Exam: Decreased Breath Sounds - Cardiovascular Exam Cardiovascular Exam: REGULAR RHYTHM, +S1, +S2 - GI/Abdominal Exam GI & Abdominal Exam: Soft, Diminished Bowel Sounds - Rectal Exam Rectal Exam: Deferred
[2017-10-12] MEDS ORDERED: Potassium Chloride 20 mEq/15 ml LIQ UD PO ONE (21:30)
[2017-10-12] MEDS ORDERED: Potassium Chloride 10 mEq ER Tab PO ONE (21:30)
--- NOTE | 2017-10-12 22:24 | CP.PCM.CON ---
Past Patient History - Infectious Disease Hx of Infectious Diseases: None - Past Medical History & Family History Past Medical History?: Yes - Past Social History Smoking Status: Unknown If Ever Smoked - CARDIAC Hx Hypertension: Yes - NEUROLOGICAL Hx Dementia: Yes - MUSCULOSKELETAL/RHEUMATOLOGICAL Other/Comment: Hemiplegia. Hemiparesis - PSYCHIATRIC Hx Substance Use: No (unknown) - SURGICAL HISTORY Other/Comment: Peg Tube - ANESTHESIA Hx Anesthesia: No Hx Anesthesia Reactions: No Hx Malignant Hyperthermia: No Has any member of the family had a problem w/ anesthesia?: No Meds Allergies/Adverse Reactions: Allergies Allergy/AdvReac Type Severity Reaction Status Date / Time No Known Allergies Allergy Unverified 10/11/17 11:54 - Medications Medications: Current Medications Albuterol/Ipratropium (Duoneb 3 Mg/0.5 Mg (3 Ml) Ud) 3 ml INH RQ6 [facility] Aspirin (Ecotrin) 81 mg PO DAILY [facility] Last Admin: 10/12/17 09:16 Dose: 81 mg Bisacodyl (Dulcolax) 10 mg [place] DAILY PRN PRN Reason: Constipation Last Admin: 10/12/17 09:16 Dose: 10 mg Famotidine (Pepcid) 20 mg PO DAILY [facility] Last Admin: 10/12/17 09:16 Dose: 20 mg Heparin Sodium (Porcine) (Heparin) 5,000 units SC Q12H [facility] Last Admin: 10/12/17 17:27 Dose: 5,000 units Piperacillin Sod/Tazobactam Sod (Zosyn 2.25 Gm Iv Premix) 2.25 gm in 50 mls @ 100 mls/hr IVPB Q8H [facility] Last Admin: 10/12/17 21:00 Dose: 100 mls/hr Rosuvastatin Calcium (Crestor) 5 mg PO HS [facility] Last Admin: 10/12/17 21:22 Dose: 5 mg Results - Vital Signs Recent Vital Signs: Last Vital Signs Temp 99 F 10/12/17 20:00 Pulse 110 H 10/12/17 21:05 Resp 29 H 10/12/17 21:05 BP 148/74 10/12/17 21:05 Pulse Ox 94 L 10/12/17 21:05 - Labs Result Diagrams: 10/12/17 06:00 10/12/17 06:00 Labs: Laboratory Results - last 24 hr 10/11/17 10/12/17 10/12/17 23:37 05:54 06:00 WBC RBC Hgb Hct MCV MCH MCHC RDW Plt Count MPV Neut % (Auto) Lymph % (Auto) [place] % (Auto) Eos % (Auto) Baso % (Auto) Neut # Lymph # [place] # Eos # Baso # Sodium Potassium Chloride Carbon Dioxide Anion Gap BUN Creatinine Est GFR ( Amer) Est GFR (Non-Af Amer) POC Glucose (mg/dL) 130 H 107 Random Glucose Lactic Acid Calcium Phosphorus Magnesium Total Bilirubin AST ALT Alkaline Phosphatase Total Protein Albumin Globulin Albumin/Globulin Ratio Random Vancomycin 12.83 10/12/17 10/12/17 10/12/17 06:00 06:00 06:00 WBC 7.5 RBC 4.28 L Hgb 12.5 Hct 37.3 MCV 87.1 MCH 29.1 MCHC 33.4 RDW 15.5 H Plt Count 190 D MPV 8.3 Neut % (Auto) 69.0 Lymph % (Auto) 17.9 L [place] % (Auto) 11.8 H Eos % (Auto) 0.7 Baso % (Auto) 0.6 Neut # 5.1 Lymph # 1.3 [place] # 0.9 H Eos # 0.1 Baso # 0.0 Sodium 145 Potassium 3.3 L Chloride 113 H Carbon Dioxide 27 Anion Gap 9 L BUN 54 H Creatinine 1.8 H Est GFR ( Amer) 45 Est GFR (Non-Af Amer) 37 POC Glucose (mg/dL) Random Glucose 112 H Lactic Acid 1.8 Calcium 8.0 L Phosphorus 4.4 Magnesium 1.9 Total Bilirubin 0.7 AST 41 ALT 54 Alkaline Phosphatase 40 Total Protein 5.6 L Albumin 2.3 L Globulin 3.3 Albumin/Globulin Ratio 0.7 L Random Vancomycin 10/12/17 10/12/17 12:08 17:54 WBC RBC Hgb Hct MCV MCH MCHC RDW Plt Count MPV Neut % (Auto) Lymph % (Auto) [place] % (Auto) Eos % (Auto) Baso % (Auto) Neut # Lymph # [place] # Eos # Baso # Sodium Potassium Chloride Carbon Dioxide Anion Gap BUN Creatinine Est GFR ( Amer) Est GFR (Non-Af Amer) POC Glucose (mg/dL) 112 H 109 Random Glucose Lactic Acid Calcium Phosphorus Magnesium Total Bilirubin AST ALT Alkaline Phosphatase Total Protein Albumin Globulin Albumin/Globulin Ratio Random Vancomycin
[2017-10-13] MEDS: Albuterol-Ipratrop 3 mg / 0.5 (3 ml) UD INH SCH ×4 (01:53→20:22)
[2017-10-13] MEDS: Piperacill/Tazo 2.25gm in Dex 2.25 GM/50 ML BAG IVPB SCH ×3 (05:07→21:30)
[2017-10-13 06:35] LABS: BASO # 0.1 K/uL (0.0-0.2); BASO % 0.5 % (0.0-2.0); EOS # 0.2 K/uL (0.0-0.7); EOS % 2.4 % (0.0-4.0); HEMATOCRIT 36.1 % (35.0-51.0); LYMPH # 1.4 K/uL (1.0-4.3); LYMPH % 13.6 % (20.0-40.0); MEAN CELL VOLUME 86.2 fL (80.0-94.0); MEAN CORPUSCULAR HGB CONC 33.6 g/dL (33.0-37.0); MEAN PLATELET VOLUME 8.7 fL (7.2-11.7); MONO % 9.5 % (0.0-10.0); RED CELL DISTRIBUTION WIDTH 15.6 % (11.5-14.5); WHITE BLOOD COUNT 10.2 K/uL (4.8-10.8)
[2017-10-13 07:14] LABS: BLOOD UREA NITROGEN 47 mg/dL (9-20); CALCIUM 8.5 mg/dl (8.6-10.4); CARBON DIOXIDE 26 mmol/L (22-30); CHLORIDE 119 mmol/L (98-107); GFR AFRICAN-AMERICAN > 60; GLUCOSE,RANDOM 119 mg/dL (75-110); POTASSIUM 4.2 mmol/L (3.6-5.2); SODIUM 151 mmol/L (132-148)
--- NOTE | 2017-10-13 08:13 | CP.CCUPN ---
CCU Subjective - Physician Review Events Since Last Encounter (Free Text): 10/13/17 08:09 patient is currently on BiPAP. Patient is DNR/DNI Requested by patient's daughter Patient has a right-sided weakness. PEG tube in place 50%FiO2. Mild respiratory Distress,mildlytachycardia Currently on antibiotic CCU Objective - Vital Signs / Intake & Output Vital Signs (Last 4 hours): Vital Signs Temp Pulse Resp BP Pulse Ox 10/13/17 07:49 107 H 10/13/17 06:10 123 H 10/13/17 06:05 113 H 33 H 127/55 L 93 L 10/13/17 06:00 99.7 F H 111 H 32 H 127/55 L 95 10/13/17 05:05 116 H 34 H 144/72 96 10/13/17 05:00 118 H 35 H 96 Intake and Output (Last 8hrs): Intake & Output 10/12/17 10/13/17 10/13/17 22:59 06:59 14:59 Intake Total 80 250 Output Total 300 480 Balance -220 -230 Weight 131 lb 11.999 oz Intake: Intake, IV Amount 50 50 Right Antecubital 50 50 Oral 0 0 Tube Feeding 30 200 Output: Urine 300 480 Urethral (Manley) 300 480 Other: # Bowel Movements 0 0 Responding to deep Stimulus Right-sided weakness Bilateral basilar wheezing noted Regular heart sound Edema present - Physical Exam Mouth: Positive for: Moist Mucous Membranes Respiratory/Chest: Positive for: Good Air Exchange, Rhonchi, Tachypneic Cardiovascular: Positive for: Regular Rate and Rhythm, Murmurs, Normal S1, S2 Abdomen: Positive for: Normal Bowel Sounds, Other (PEG Tube in place) - Medications Active Medications: Active Medications Generic Name Dose Route Start Last Admin Trade Name Freq PRN Reason Stop Dose Admin Albuterol/Ipratropium 3 ml 10/12/17 20:00 10/13/17 07:49 Duoneb 3 Mg/0.5 Mg (3 Ml) Ud INH 3 ml RQ6 SHAHRZAD Administration Aspirin 81 mg 10/12/17 10:00 10/12/17 09:16 Ecotrin PO 81 mg DAILY SHAHRZAD Administration Bisacodyl 10 mg 10/12/17 08:23 10/12/17 09:16 Dulcolax [place] 10 mg DAILY PRN Administration Constipation Famotidine 20 mg 10/12/17 10:00 12/16/17 09:16 Pepcid PO 20 mg DAILY SHAHRZAD Administration Heparin Sodium (Porcine) 5,000 units 10/11/17 18:15 10/13/17 06:16 Heparin SC 5,000 units Q12H SHAHRZAD Administration Piperacillin Sod/Tazobactam Sod 2.25 gm in 50 mls @ 100 mls/hr 10/11/17 21:00 10/13/17 05:07 Zosyn 2.25 Gm Iv Premix IVPB 100 mls/hr Q8H SHAHRZAD Administration Rosuvastatin Calcium 5 mg 10/12/17 22:00 10/12/17 21:22 Crestor PO 5 mg HS SHAHRZAD Administration - Patient Studies Lab Studies: Microbiology Studies 10/11/17 12:10 Blood Culture - Preliminary Blood NO GROWTH AFTER 24 HOURS 10/11/17 11:55 Blood Culture - Preliminary Blood NO GROWTH AFTER 24 HOURS 10/11/17 12:05 Urine Culture - Final Urine,Manley No Growth (<1,000 CFU/ML) Lab Studies 10/13/17 10/13/17 10/13/17 Range/Units 06:33 06:28 06:28 WBC 10.2 (4.8-10.8) K/uL RBC 4.18 L (4.40-5.90) Mil/uL Hgb 12.1 (12.0-18.0) g/dL Hct 36.1 (35.0-51.0) % MCV 86.2 (80.0-94.0) fL MCH 29.0 (27.0-31.0) pg MCHC 33.6 (33.0-37.0) g/dL RDW 15.6 H (11.5-14.5) % Plt Count 266 (130-400) K/uL MPV 8.7 (7.2-11.7) fL Neut % (Auto) 74.0 (50.0-75.0) % Lymph % (Auto) 13.6 L (20.0-40.0) % [place] % (Auto) 9.5 (0.0-10.0) % Eos % (Auto) 2.4 (0.0-4.0) % Baso % (Auto) 0.5 (0.0-2.0) % Neut # 7.6 H (1.8-7.0) K/uL Lymph # 1.4 (1.0-4.3) K/uL [place] # 1.0 H (0.0-0.8) K/uL Eos # 0.2 (0.0-0.7) K/uL Baso # 0.1 (0.0-0.2) K/uL Sodium 151 H (132-148) mmol/L Potassium 4.2 (3.6-5.2) mmol/L Chloride 119 H (98-107) mmol/L Carbon Dioxide 26 (22-30) mmol/L Anion Gap 10 (10-20) BUN 47 H (9-20) mg/dL Creatinine 1.0 (0.8-1.5) mg/dL Est GFR ( Amer) > 60 Est GFR (Non-Af Amer) > 60 POC Glucose (mg/dL) 113 H (65-110) mg/dL Random Glucose 119 H (75-110) mg/dL Calcium 8.5 L (8.6-10.4) mg/dl 10/13/17 10/12/17 10/12/17 Range/Units 00:51 17:54 12:08 WBC (4.8-10.8) K/uL RBC (4.40-5.90) Mil/uL Hgb (12.0-18.0) g/dL Hct (35.0-51.0) % MCV (80.0-94.0) fL MCH (27.0-31.0) pg MCHC (33.0-37.0) g/dL RDW (11.5-14.5) % Plt Count (130-400) K/uL MPV (7.2-11.7) fL Neut % (Auto) (50.0-75.0) % Lymph % (Auto) (20.0-40.0) % [place] % (Auto) (0.0-10.0) % Eos % (Auto) (0.0-4.0) % Baso % (Auto) (0.0-2.0) % Neut # (1.8-7.0) K/uL Lymph # (1.0-4.3) K/uL [place] # (0.0-0.8) K/uL Eos # (0.0-0.7) K/uL Baso # (0.0-0.2) K/uL Sodium (132-148) mmol/L Potassium (3.6-5.2) mmol/L Chloride (98-107) mmol/L Carbon Dioxide (22-30) mmol/L Anion Gap (10-20) BUN (9-20) mg/dL Creatinine (0.8-1.5) mg/dL Est GFR ( Amer) Est GFR (Non-Af Amer) POC Glucose (mg/dL) 117 H 109 112 H (65-110) mg/dL Random Glucose (75-110) mg/dL Calcium (8.6-10.4) mg/dl Laboratory Results - last 24 hr 10/12/17 10/12/17 10/13/17 12:08 17:54 00:51 WBC RBC Hgb Hct MCV MCH MCHC RDW Plt Count MPV Neut % (Auto) Lymph % (Auto) [place] % (Auto) Eos % (Auto) Baso % (Auto) Neut # Lymph # [place] # Eos # Baso # Sodium Potassium Chloride Carbon Dioxide Anion Gap BUN Creatinine Est GFR ( Amer) Est GFR (Non-Af Amer) POC Glucose (mg/dL) 112 H 109 117 H Random Glucose Calcium 10/13/17 10/13/17 10/13/17 06:28 06:28 06:33 WBC 10.2 RBC 4.18 L Hgb 12.1 Hct 36.1 MCV 86.2 MCH 29.0 MCHC 33.6 RDW 15.6 H Plt Count 266 MPV 8.7 Neut % (Auto) 74.0 Lymph % (Auto) 13.6 L [place] % (Auto) 9.5 Eos % (Auto) 2.4 Baso % (Auto) 0.5 Neut # 7.6 H Lymph # 1.4 [place] # 1.0 H Eos # 0.2 Baso # 0.1 Sodium 151 H Potassium 4.2 Chloride 119 H Carbon Dioxide 26 Anion Gap 10 BUN 47 H Creatinine 1.0 Est GFR ( Amer) > 60 Est GFR (Non-Af Amer) > 60 POC Glucose (mg/dL) 113 H Random Glucose 119 H Calcium 8.5 L Fingerstick Blood Sugar Results: 113 Review of Systems - Review of Systems All systems: reviewed and no additional remarkable complaints except Assessment/Plan (1) Pneumonia Assessment and plan: Patient has most likely aspiration pneumonitis. Current x-ray showing increasing opacity on the right lung. changes consistent with pneumonia Mild respiratory insufficiency, on BiPAP. We will continue to monitor. Patient has a history of CVA with right-sided weakness, neurological condition causing worsening aspiration. Aspirin antiplatelets, Crestor medication. Antibiotic DVT GI prophylaxis. Will start feeding today. Current Visit: Yes Status: Acute (2) Respiratory failure Current Visit: Yes Status: Acute
--- NOTE | 2017-10-13 09:40 | CP.PCM.PN ---
Subjective - Date & Time of Evaluation Date of Evaluation: 10/13/17 Time of Evaluation: 11:00 - Subjective Subjective: clinically same Objective - Vital Signs/Intake and Output Vital Signs (last 24 hours): Temp Pulse Resp BP Pulse Ox 99.7 F H 112 H 30 H 150/68 95 10/13/17 06:00 10/13/17 08:05 10/13/17 08:05 10/13/17 08:05 10/13/17 08:05 Intake and Output: 10/13/17 10/13/17 06:59 18:59 Intake Total 330 60 Output Total 700 80 Balance -370 -20 - Medications Medications: Current Medications Albuterol/Ipratropium (Duoneb 3 Mg/0.5 Mg (3 Ml) Ud) 3 ml INH RQ6 [facility] Last Admin: 10/13/17 07:49 Dose: 3 ml Aspirin (Ecotrin) 81 mg PO DAILY [facility] Last Admin: 10/12/17 09:16 Dose: 81 mg Bisacodyl (Dulcolax) 10 mg [place] DAILY PRN PRN Reason: Constipation Last Admin: 10/12/17 09:16 Dose: 10 mg Famotidine (Pepcid) 20 mg PO DAILY [facility] Last Admin: 10/12/17 09:16 Dose: 20 mg Heparin Sodium (Porcine) (Heparin) 5,000 units SC Q12H [facility] Last Admin: 10/13/17 06:16 Dose: 5,000 units Piperacillin Sod/Tazobactam Sod (Zosyn 2.25 Gm Iv Premix) 2.25 gm in 50 mls @ 100 mls/hr IVPB Q8H [facility] Last Admin: 10/13/17 05:07 Dose: 100 mls/hr Rosuvastatin Calcium (Crestor) 5 mg PO HS [facility] Last Admin: 10/12/17 21:22 Dose: 5 mg - Labs Labs: 10/13/17 06:28 10/13/17 06:28 PT 15.9 SECONDS (9.7-12.2) H 10/11/17 12:24 INR 1.4 10/11/17 12:24 APTT 30 SECONDS (21-34) 10/11/17 12:24 - Constitutional Appears: Well - Head Exam Head Exam: ATRAUMATIC, NORMAL INSPECTION, NORMOCEPHALIC - Eye Exam Eye Exam: EOMI, Normal appearance, PERRL Pupil Exam: NORMAL ACCOMODATION, PERRL - ENT Exam ENT Exam: Mucous Membranes Moist, Normal Exam - Neck Exam Neck Exam: Full ROM, Normal Inspection. absent: Lymphadenopathy - Respiratory Exam Respiratory Exam: Decreased Breath Sounds - Cardiovascular Exam Cardiovascular Exam: REGULAR RHYTHM, +S1, +S2 - GI/Abdominal Exam GI & Abdominal Exam: Soft, Diminished Bowel Sounds - Rectal Exam Rectal Exam: Deferred
--- NOTE | 2017-10-13 15:47 | CP.PCM.CON ---
History of Present Illness - History of Present Illness History of Present Illness: 72 y/o male [facility] after being found lethargic, febrile, tachycardic, and hypotensive. In the ER, pt is unresponsive. Limited history at this time. started on sepsis pathway and received broad spectrum coverage fpor pneumonia with fluid resusctation and CPAP ID consulted for this - Medical History PMH: Dementia, HTN, Hyperlipidemia Family History: States: Unknown Family Hx Review of Systems - Review of Systems Systems not reviewed;Unavailable: Altered Mental Status All systems: reviewed and no additional remarkable complaints except - Constitutional Constitutional: As Per HPI - EENT Eyes: absent: As Per HPI, Blind Spots, Blurred Vision, Change in Vision, Decreased Night Vision, Diplopia, Discharge, Dry Eye, Exophthalmos, Floaters, Irritation, Itchy Eyes, Loss of Peripheral Vision, Pain, Photophobia, Requires Corrective Lenses, Sees Flashes, Spots in Vision, Tunnel Vision, Other Visual Disturbances, Loss of Vision, Other Nose/Mouth/Throat: absent: As Per HPI, Epistaxis, Nasal Congestion, Nasal Discharge, Nasal Obstruction, Nasal Trauma, Nose Pain, Post Nasal Drip, Sinus Pain, Sinus Pressure, Bleeding Gums, Change in Voice, Dental Pain, Dry Mouth, Dysphagia, Halitosis, Hoarsness, Lip Swelling, Mouth Lesions, Mouth Pain, Odynophagia, Sore Throat, Throat Swelling, Tongue Swelling, Facial Pain, Neck Pain, Neck Mass, Other - Cardiovascular Cardiovascular: As Per HPI - Respiratory Respiratory: As Per HPI, Cough, Dyspnea. absent: Hemoptysis - Gastrointestinal Gastrointestinal: absent: As Per HPI, Abdominal Pain, Belching, Bloating, Change in Bowel Habits, Change in Stool Character, Coffee Ground Emesis, Constipation, Cramping, Diarrhea, Dyspepsia, Dysphagia, Early Satiety, Excessive Flatus, Fecal Incontinence, Heartburn, Hematemesis, Hematochezia, Loose Stools, Melena, Nausea, Odynophagia, Temesmus, Vomiting, Other - Genitourinary Genitourinary: absent: As Per HPI, Change in Urinary Stream, Difficulty Urinating, Dysuria, Flank Pain, Hematuria, Pyuria, Nocturia, Urinary Incontinence, Urinary Frequency, Urinary Hesitance, Urinary Urgency, Voiding Freq/Small Amts, Freq UTI, Hx Renal/Bladder Calculi, Hx /Renal Surgery, Bladder Distension, Other - Musculoskeletal Musculoskeletal: absent: As Per HPI, Abnormal Gait, Arthralgias, Atrophy, Back Pain, Deformity, Joint Swelling, Limited Range of Motion, Loss of Height, Muscle Cramps, Muscle Weakness, Myalgias, Neck Pain, Numbness, Radiating Pain into Limb, Stiffness, Tingling, Other - Integumentary Integumentary: absent: As Per HPI, Acne, Alopecia, Bleeding Lesions, Change in Hair, Change in Nails, Change in Pigmentation, Changing Lesions, Dry Skin, Erythema, Furuncle, Hirsutism, Lesions, New Lesions, Non-Healing Lesions, Photosensitivity, Pruritus, Rash, Skin Pain, Skin Ulcer, Sores, Striae, Swelling , Unusual Bruising, Wounds, Jaundice, Other - Neurological Neurological: As Per HPI - Psychiatric Psychiatric: absent: As Per HPI, Abnormal Sleep Pattern, Anhedonia, Anxiety, Auditory Hallucinations, Behavioral Changes, Change in Appetite, Change in Libido, Confusion, Depression, Difficulty Concentrating, Hallucinations, Homicidal Ideation, Hopelessness, Irritability, Memory Loss, Mood Swings, Panic Attacks, Paranoia, Suicidal Ideation, Visual Hallucinations, Tactile Hallucinations, Other - Endocrine Endocrine: absent: As Per HPI, Change in Body Appearance, Change in Libido, Cold Intolorance, Deepening of Voice, Excessive Sweating, Fatigue, Flushing, Heat Intolorance, Increase in Ring/Shoe/Hat Size, Palpitations, Polydipsia, Polyphagia, Polyuria, Other - Hematologic/Lymphatic Hematologic: absent: As Per HPI, Easy Bleeding, Easy Bruising, Lymphadenopathy, Other Past Patient History - Infectious Disease Hx of Infectious Diseases: None - Past Medical History & Family History Past Medical History?: Yes - Past Social History Smoking Status: Unknown If Ever Smoked - CARDIAC Hx Hypertension: Yes - NEUROLOGICAL Hx Dementia: Yes - MUSCULOSKELETAL/RHEUMATOLOGICAL Other/Comment: Hemiplegia. Hemiparesis - PSYCHIATRIC Hx Substance Use: No (unknown) - SURGICAL HISTORY Other/Comment: Peg Tube - ANESTHESIA Hx Anesthesia: No Hx Anesthesia Reactions: No Hx Malignant Hyperthermia: No Has any member of the family had a problem w/ anesthesia?: No Meds Allergies/Adverse Reactions: Allergies Allergy/AdvReac Type Severity Reaction Status Date / Time No Known Allergies Allergy Unverified 10/11/17 11:54 - Medications Medications: Current Medications Albuterol/Ipratropium (Duoneb 3 Mg/0.5 Mg (3 Ml) Ud) 3 ml INH RQ6 [facility] Last Admin: 10/13/17 14:38 Dose: 3 ml Aspirin (Ecotrin) 81 mg PO DAILY [facility] Last Admin: 10/13/17 09:39 Dose: 81 mg Bisacodyl (Dulcolax) 10 mg [place] DAILY PRN PRN Reason: Constipation Last Admin: 10/12/17 09:16 Dose: 10 mg Famotidine (Pepcid) 20 mg PO DAILY [facility] Last Admin: 10/13/17 09:38 Dose: 20 mg Heparin Sodium (Porcine) (Heparin) 5,000 units SC Q12H [facility] Last Admin: 10/13/17 06:16 Dose: 5,000 units Piperacillin Sod/Tazobactam Sod (Zosyn 2.25 Gm Iv Premix) 2.25 gm in 50 mls @ 100 mls/hr IVPB Q8H [facility] Last Admin: 10/13/17 13:20 Dose: 100 mls/hr Rosuvastatin Calcium (Crestor) 5 mg PO HS [facility] Last Admin: 10/12/17 21:22 Dose: 5 mg Physical Exam - Constitutional Appears: No Acute Distress, Confused, Cachectic, Chronically Ill - Head Exam Head Exam: ATRAUMATIC, NORMAL INSPECTION, NORMOCEPHALIC - Eye Exam Eye Exam: PERRL. absent: Scleral icterus - ENT Exam ENT Exam: Mucous Membranes Dry, Normal External Ear Exam, TM's Normal Bilaterally - Neck Exam Neck exam: Negative for: Lymphadenopathy, Thyromegaly - Respiratory Exam Respiratory Exam: Decreased Breath Sounds, Prolonged Expiratory Phase, Rales, Rhonchi - Cardiovascular Exam Cardiovascular Exam: Tachycardia, REGULAR RHYTHM, +S1, +S2 - GI/Abdominal Exam GI & Abdominal Exam: Diminished Bowel Sounds, Distended, Soft. absent: Firm, Guarding, Rebound, Rigid, Tenderness - Rectal Exam Rectal Exam: Deferred - Exam Exam: NORMAL INSPECTION - Extremities Exam Extremities exam: Positive for: pedal pulses present. Negative for: calf tenderness, pedal edema, tenderness - Back Exam Back exam: absent: CVA tenderness (L), CVA tenderness (R), paraspinal tenderness - Neurological Exam Neurological exam: Alert, Altered, CN II-XII Intact - Psychiatric Exam Psychiatric exam: Depressed - Skin Skin Exam: Dry Results - Vital Signs Recent Vital Signs: Last Vital Signs Temp 98.7 F 10/13/17 14:00 Pulse 118 H 10/13/17 15:00 Resp 30 H 10/13/17 15:00 BP 142/73 10/13/17 14:05 Pulse Ox 96 10/13/17 15:00 - Labs Result Diagrams: 10/13/17 06:28 10/13/17 06:28 Labs: Laboratory Results - last 24 hr 10/12/17 10/13/17 10/13/17 17:54 00:51 06:28 WBC 10.2 RBC 4.18 L Hgb 12.1 Hct 36.1 MCV 86.2 MCH 29.0 MCHC 33.6 RDW 15.6 H Plt Count 266 MPV 8.7 Neut % (Auto) 74.0 Lymph % (Auto) 13.6 L Mitchell % (Auto) 9.5 Eos % (Auto) 2.4 Baso % (Auto) 0.5 Neut # 7.6 H Lymph # 1.4 Mitchell # 1.0 H Eos # 0.2 Baso # 0.1 Sodium Potassium Chloride Carbon Dioxide Anion Gap BUN Creatinine Est GFR ( Amer) Est GFR (Non-Af Amer) POC Glucose (mg/dL) 109 117 H Random Glucose Calcium 10/13/17 10/13/17 10/13/17 06:28 06:33 12:12 WBC RBC Hgb Hct MCV MCH MCHC RDW Plt Count MPV Neut % (Auto) Lymph % (Auto) Mitchell % (Auto) Eos % (Auto) Baso % (Auto) Neut # Lymph # Mitchell # Eos # Baso # Sodium 151 H Potassium 4.2 Chloride 119 H Carbon Dioxide 26 Anion Gap 10 BUN 47 H Creatinine 1.0 Est GFR ( Amer) > 60 Est GFR (Non-Af Amer) > 60 POC Glucose (mg/dL) 113 H 137 H Random Glucose 119 H Calcium 8.5 L Assessment & Plan (1) Hypotension Status: Acute (2) Pneumonia Status: Acute (3) Respiratory failure Status: Acute (4) Sepsis Status: Acute - Assessment and Plan (Free Text) Assessment: cultures pending iv rx in progress
[2017-10-13] MEDS ORDERED: Vancomycin 1 gm/NS 200 ml 1 GM/200 ML BAG IVPB STA (15:52)
[2017-10-14] MEDS: Albuterol-Ipratrop 3 mg / 0.5 (3 ml) UD INH SCH ×4 (02:03→20:01)
[2017-10-14] MEDS: Piperacill/Tazo 2.25gm in Dex 2.25 GM/50 ML BAG IVPB SCH (06:00)
[2017-10-14 06:28] LABS: BASO % 0.3 % (0.0-2.0); EOS # 0.3 K/uL (0.0-0.7); EOS % 2.4 % (0.0-4.0); HEMATOCRIT 39.2 % (35.0-51.0); LYMPH # 2.1 K/uL (1.0-4.3); LYMPH % 16.7 % (20.0-40.0); MEAN CELL VOLUME 88.8 fL (80.0-94.0); MEAN CORPUSCULAR HEMOGLOBIN 28.8 pg (27.0-31.0); MEAN CORPUSCULAR HGB CONC 32.5 g/dL (33.0-37.0); MEAN PLATELET VOLUME 8.5 fL (7.2-11.7); MONO # 1.1 K/uL (0.0-0.8); MONO % 8.5 % (0.0-10.0); RED CELL DISTRIBUTION WIDTH 16.2 % (11.5-14.5); WHITE BLOOD COUNT 12.6 K/uL (4.8-10.8)
[2017-10-14 06:48] LABS: ALB/GLOB RATIO 0.7 (1.0-2.1); ALKALINE PHOSPHATASE 125 U/L (38-126); ALT/SGPT 122 U/L (21-72); AST/SGOT 108 U/L (17-59); BILIRUBIN,TOTAL 0.4 mg/dL (0.2-1.3); BLOOD UREA NITROGEN 41 mg/dL (9-20); CALCIUM 8.5 mg/dl (8.6-10.4); CARBON DIOXIDE 29 mmol/L (22-30); CHLORIDE 122 mmol/L (98-107); GFR AFRICAN-AMERICAN > 60; GLUCOSE,RANDOM 132 mg/dL (75-110); MAGNESIUM 2.6 mg/dL (1.6-2.3); POTASSIUM 3.9 mmol/L (3.6-5.2); SODIUM 156 mmol/L (132-148); TOTAL PROTEIN 6.2 g/dL (6.3-8.3)
[2017-10-14] MEDS ORDERED: Cefepime IV 1 gm in Dextrose 1 GM/50 ML BAG IVPB ONE (12:00)
--- NOTE | 2017-10-14 12:11 | CP.CCUPN ---
<Alisson Coronado - Last Filed: 10/14/17 14:07> CCU Subjective - Physician Review Subjective (Free Text): 10/14/17 12:08 Patient seen and examined at bedside. No acute events overnight. Patient currently on BiPAP. ROS unattainable. CCU Objective - Vital Signs / Intake & Output Vital Signs (Last 4 hours): Vital Signs Pulse 10/14/17 09:13 99 H Intake and Output (Last 8hrs): Intake & Output 10/13/17 10/14/17 10/14/17 22:59 06:59 14:59 Intake Total 850 550 300 Output Total 100 400 Balance 750 150 300 Weight 130 lb 1.164 oz 130 lb Intake: Intake, IV Amount 250 50 Left Antecubital 50 50 Right Antecubital 200 Oral 200 100 Tube Feeding 400 400 200 Other 100 Output: Urine 100 400 Condom 100 400 Other: # Bowel Movements 1 1 - Physical Exam Physical Exam Limitations: Positive for: Altered Mental Status Head: Positive for: Atraumatic, Normocephalic Conjunctiva: Positive for: Normal Mouth: Positive for: Moist Mucous Membranes Neck: Negative for: JVD Respiratory/Chest: Positive for: Good Air Exchange, Rhonchi, Tachypneic Cardiovascular: Positive for: Regular Rate and Rhythm, Murmurs, Normal S1, S2 Abdomen: Positive for: Normal Bowel Sounds, Other (PEG Tube in place) Genitourinary Male: Positive for: Other (Manley in place ) Upper Extremity: Positive for: Edema Lower Extremity: Positive for: Edema, Other (large intact blister of left heel ) Neurological: Positive for: Other (GCS: 10) Skin: Positive for: Warm, Dry, Normal Color Psychiatric: Positive for: Alert - Medications Active Medications: Active Medications Generic Name Dose Route Start Last Admin Trade Name Freq PRN Reason Stop Dose Admin Albuterol/Ipratropium 3 ml 10/12/17 20:00 10/14/17 09:08 Duoneb 3 Mg/0.5 Mg (3 Ml) Ud INH 3 ml RQ6 SHAHRZAD Administration Aspirin 81 mg 10/12/17 10:00 10/14/17 09:10 Ecotrin PO 81 mg DAILY SHAHRZAD Administration Bisacodyl 10 mg 10/12/17 08:23 10/12/17 09:16 Dulcolax DC 10 mg DAILY PRN Administration Constipation Famotidine 20 mg 10/12/17 10:00 10/14/17 09:10 Pepcid PO 20 mg DAILY SHAHRZAD Administration Heparin Sodium (Porcine) 5,000 units 10/11/17 18:15 10/14/17 06:10 Heparin SC 5,000 units Q12H SHAHRZAD Administration Cefepime HCl 1 gm in 50 mls @ 100 mls/hr 10/14/17 12:00 10/14/17 11:55 Maxipime Iv 1 Gm Premix IVPB 10/14/17 12:29 100 mls/hr ONCE ONE Administration Cefepime HCl 1 gm/ Sodium 50 mls @ 100 mls/hr 10/15/17 10:00 Chloride IVPB DAILY SHAHRZAD Rosuvastatin Calcium 5 mg 10/12/17 22:00 10/13/17 21:30 Crestor PO 5 mg HS SHAHRZAD Administration - Patient Studies Lab Studies: Microbiology Studies 10/11/17 12:10 Blood Culture - Preliminary Blood NO GROWTH AFTER 48 HOURS 10/11/17 11:55 Blood Culture - Preliminary Blood NO GROWTH AFTER 48 HOURS 10/11/17 Unknown MRSA Culture (Admit) - Final Nose Lab Studies 10/14/17 10/14/17 10/14/17 Range/Units 06:20 06:16 06:16 WBC 12.6 H (4.8-10.8) K/uL RBC 4.42 (4.40-5.90) Mil/uL Hgb 12.7 (12.0-18.0) g/dL Hct 39.2 (35.0-51.0) % MCV 88.8 D (80.0-94.0) fL MCH 28.8 (27.0-31.0) pg MCHC 32.5 L (33.0-37.0) g/dL RDW 16.2 H (11.5-14.5) % Plt Count 256 (130-400) K/uL MPV 8.5 (7.2-11.7) fL Neut % (Auto) 72.1 (50.0-75.0) % Lymph % (Auto) 16.7 L (20.0-40.0) % [place] % (Auto) 8.5 (0.0-10.0) % Eos % (Auto) 2.4 (0.0-4.0) % Baso % (Auto) 0.3 (0.0-2.0) % Neut # 9.1 H (1.8-7.0) K/uL Lymph # 2.1 (1.0-4.3) K/uL [place] # 1.1 H (0.0-0.8) K/uL Eos # 0.3 (0.0-0.7) K/uL Baso # 0.0 (0.0-0.2) K/uL Sodium 156 H (132-148) mmol/L Potassium 3.9 (3.6-5.2) mmol/L Chloride 122 H (98-107) mmol/L Carbon Dioxide 29 (22-30) mmol/L Anion Gap 8 L (10-20) BUN 41 H (9-20) mg/dL Creatinine 0.8 (0.8-1.5) mg/dL Est GFR ( Amer) > 60 Est GFR (Non-Af Amer) > 60 POC Glucose (mg/dL) (65-110) mg/dL Random Glucose 132 H (75-110) mg/dL Calcium 8.5 L (8.6-10.4) mg/dl Phosphorus 3.0 (2.5-4.5) mg/dL Magnesium 2.6 H (1.6-2.3) mg/dL Total Bilirubin 0.4 (0.2-1.3) mg/dL AST 108 H D (17-59) U/L ALT 122 H D (21-72) U/L Alkaline Phosphatase 125 (38-126) U/L Total Protein 6.2 L (6.3-8.3) g/dL Albumin 2.5 L (3.5-5.0) g/dL Globulin 3.7 (2.2-3.9) gm/dL Albumin/Globulin Ratio 0.7 L (1.0-2.1) Random Vancomycin 12.56 ug/mL Ur L.pneumophila Ag (NEGATIVE) 10/14/17 10/13/17 10/13/17 Range/Units 05:33 23:47 19:45 WBC (4.8-10.8) K/uL RBC (4.40-5.90) Mil/uL Hgb (12.0-18.0) g/dL Hct (35.0-51.0) % MCV (80.0-94.0) fL MCH (27.0-31.0) pg MCHC (33.0-37.0) g/dL RDW (11.5-14.5) % Plt Count (130-400) K/uL MPV (7.2-11.7) fL Neut % (Auto) (50.0-75.0) % Lymph % (Auto) (20.0-40.0) % [place] % (Auto) (0.0-10.0) % Eos % (Auto) (0.0-4.0) % Baso % (Auto) (0.0-2.0) % Neut # (1.8-7.0) K/uL Lymph # (1.0-4.3) K/uL [place] # (0.0-0.8) K/uL Eos # (0.0-0.7) K/uL Baso # (0.0-0.2) K/uL Sodium (132-148) mmol/L Potassium (3.6-5.2) mmol/L Chloride (98-107) mmol/L Carbon Dioxide (22-30) mmol/L Anion Gap (10-20) BUN (9-20) mg/dL Creatinine (0.8-1.5) mg/dL Est GFR ( Amer) Est GFR (Non-Af Amer) POC Glucose (mg/dL) 126 H 93 (65-110) mg/dL Random Glucose (75-110) mg/dL Calcium (8.6-10.4) mg/dl Phosphorus (2.5-4.5) mg/dL Magnesium (1.6-2.3) mg/dL Total Bilirubin (0.2-1.3) mg/dL AST (17-59) U/L ALT (21-72) U/L Alkaline Phosphatase (38-126) U/L Total Protein (6.3-8.3) g/dL Albumin (3.5-5.0) g/dL Globulin (2.2-3.9) gm/dL Albumin/Globulin Ratio (1.0-2.1) Random Vancomycin ug/mL Ur L.pneumophila Ag Negative (NEGATIVE) 10/13/17 10/13/17 Range/Units 17:16 12:12 WBC (4.8-10.8) K/uL RBC (4.40-5.90) Mil/uL Hgb (12.0-18.0) g/dL Hct (35.0-51.0) % MCV (80.0-94.0) fL MCH (27.0-31.0) pg MCHC (33.0-37.0) g/dL RDW (11.5-14.5) % Plt Count (130-400) K/uL MPV (7.2-11.7) fL Neut % (Auto) (50.0-75.0) % Lymph % (Auto) (20.0-40.0) % [place] % (Auto) (0.0-10.0) % Eos % (Auto) (0.0-4.0) % Baso % (Auto) (0.0-2.0) % Neut # (1.8-7.0) K/uL Lymph # (1.0-4.3) K/uL [place] # (0.0-0.8) K/uL Eos # (0.0-0.7) K/uL Baso # (0.0-0.2) K/uL Sodium (132-148) mmol/L Potassium (3.6-5.2) mmol/L Chloride (98-107) mmol/L Carbon Dioxide (22-30) mmol/L Anion Gap (10-20) BUN (9-20) mg/dL Creatinine (0.8-1.5) mg/dL Est GFR ( Amer) Est GFR (Non-Af Amer) POC Glucose (mg/dL) 114 H 137 H (65-110) mg/dL Random Glucose (75-110) mg/dL Calcium (8.6-10.4) mg/dl Phosphorus (2.5-4.5) mg/dL Magnesium (1.6-2.3) mg/dL Total Bilirubin (0.2-1.3) mg/dL AST (17-59) U/L ALT (21-72) U/L Alkaline Phosphatase (38-126) U/L Total Protein (6.3-8.3) g/dL Albumin (3.5-5.0) g/dL Globulin (2.2-3.9) gm/dL Albumin/Globulin Ratio (1.0-2.1) Random Vancomycin ug/mL Ur L.pneumophila Ag (NEGATIVE) Laboratory Results - last 24 hr 10/13/17 10/13/17 10/13/17 12:12 17:16 19:45 WBC RBC Hgb Hct MCV MCH MCHC RDW Plt Count MPV Neut % (Auto) Lymph % (Auto) [place] % (Auto) Eos % (Auto) Baso % (Auto) Neut # Lymph # [place] # Eos # Baso # Sodium Potassium Chloride Carbon Dioxide Anion Gap BUN Creatinine Est GFR ( Amer) Est GFR (Non-Af Amer) POC Glucose (mg/dL) 137 H 114 H Random Glucose Calcium Phosphorus Magnesium Total Bilirubin AST ALT Alkaline Phosphatase Total Protein Albumin Globulin Albumin/Globulin Ratio Random Vancomycin Ur L.pneumophila Ag Negative 10/13/17 10/14/17 10/14/17 23:47 05:33 06:16 WBC RBC Hgb Hct MCV MCH MCHC RDW Plt Count MPV Neut % (Auto) Lymph % (Auto) [place] % (Auto) Eos % (Auto) Baso % (Auto) Neut # Lymph # [place] # Eos # Baso # Sodium Potassium Chloride Carbon Dioxide Anion Gap BUN Creatinine Est GFR ( Amer) Est GFR (Non-Af Amer) POC Glucose (mg/dL) 93 126 H Random Glucose Calcium Phosphorus Magnesium Total Bilirubin AST ALT Alkaline Phosphatase Total Protein Albumin Globulin Albumin/Globulin Ratio Random Vancomycin 12.56 Ur L.pneumophila Ag 10/14/17 10/14/17 06:16 06:20 WBC 12.6 H RBC 4.42 Hgb 12.7 Hct 39.2 MCV 88.8 D MCH 28.8 MCHC 32.5 L RDW 16.2 H Plt Count 256 MPV 8.5 Neut % (Auto) 72.1 Lymph % (Auto) 16.7 L [place] % (Auto) 8.5 Eos % (Auto) 2.4 Baso % (Auto) 0.3 Neut # 9.1 H Lymph # 2.1 [place] # 1.1 H Eos # 0.3 Baso # 0.0 Sodium 156 H Potassium 3.9 Chloride 122 H Carbon Dioxide 29 Anion Gap 8 L BUN 41 H Creatinine 0.8 Est GFR ( Amer) > 60 Est GFR (Non-Af Amer) > 60 POC Glucose (mg/dL) Random Glucose 132 H Calcium 8.5 L Phosphorus 3.0 Magnesium 2.6 H Total Bilirubin 0.4 AST 108 H D ALT 122 H D Alkaline Phosphatase 125 Total Protein 6.2 L Albumin 2.5 L Globulin 3.7 Albumin/Globulin Ratio 0.7 L Random Vancomycin Ur L.pneumophila Ag Fingerstick Blood Sugar Results: 126 Assessment/Plan - Assessment and Plan (Free Text) Plan: Neuro * Alert but confused * GCS 10 (E3, V2, M5) Cardio * HR 99, NSR * BP 119/72 * ASA 81 mg PO QD * Crestor 5mg PO HS Respiratory * Pulmonology consulted - recs appreciated * O2 sat 100 * reduce BiPAP use and change to non-rebreather/nasal canula * Duonebs Q6h Renal * 24 hour input 1770 * 24 hour output 815 * Balance +955 * BUN/Cr: 41/0.8 Fluids, electrolytes, nutrition * Tube feeds * Na 156 * K 3.9 * Cl 122 * Bicarb 29 * Calcium 8.5 * Mag 2.6 * Phos 3.0 * Albumin 2.5 Infectious disease * ID consulted - recs appreciated * Tmax 101.4 (10/11) * Temp current: 99 * WBC: 12.6 * Blood culture neg x48 h * Urine culture negative * Cefepime 1g IV Hematology * H&H: 12.7/39.2 * Plt: 256 * PT/PTT/INR: 15.9/30/1.4 GI * AST/ALT: 108/122 * f/u abdominal US * Dulcolax 10 mg DC QD PRN Endocrine * blood glucose stable Prophylaxis * Pepcid 20 mg PO QD * Heparin 5000 U SC Q12 <Eliel Scott - Last Filed: 10/14/17 18:53> CCU Objective - Vital Signs / Intake & Output Vital Signs (Last 4 hours): Vital Signs Temp Pulse Resp BP Pulse Ox 10/14/17 17:00 98 H 22 119/47 L 100 10/14/17 16:00 97.4 F L 100 H 26 H 129/64 98 10/14/17 15:00 99 H 25 H 122/63 97 Intake and Output (Last 8hrs): Intake & Output 10/14/17 10/14/17 10/14/17 06:59 14:59 22:59 Intake Total 550 350 0 Output Total 400 Balance 150 350 0 Weight 130 lb 1.164 oz 130 lb Intake: Intake, IV Amount 50 50 0 Left Antecubital 50 50 0 Oral 100 Tube Feeding 400 200 0 Other 100 Output: Urine 400 Condom 400 Other: # Bowel Movements 1 2 - Medications Active Medications: Active Medications Generic Name Dose Route Start Last Admin Trade Name Freq PRN Reason Stop Dose Admin Albuterol/Ipratropium 3 ml 10/12/17 20:00 10/14/17 14:05 Duoneb 3 Mg/0.5 Mg (3 Ml) Ud INH 3 ml RQ6 SHAHRZAD Administration Aspirin 81 mg 10/12/17 10:00 10/14/17 09:10 Ecotrin PO 81 mg DAILY SHAHRZAD Administration Bisacodyl 10 mg 10/12/17 08:23 10/12/17 09:16 Dulcolax DC 10 mg DAILY PRN Administration Constipation Famotidine 20 mg 10/12/17 10:00 10/14/17 09:10 Pepcid PO 20 mg DAILY SHAHRZAD Administration Heparin Sodium (Porcine) 5,000 units 10/11/17 18:15 10/14/17 17:38 Heparin SC 5,000 units Q12H SHAHRZAD Administration Cefepime HCl 1 gm/ Sodium 50 mls @ 100 mls/hr 10/15/17 10:00 Chloride IVPB DAILY SHAHRZAD Rosuvastatin Calcium 5 mg 10/12/17 22:00 10/13/17 21:30 Crestor PO 5 mg HS SHAHRZAD Administration - Patient Studies Lab Studies: Microbiology Studies 10/11/17 12:10 Blood Culture - Preliminary Blood NO GROWTH AFTER 3 DAYS 10/11/17 11:55 Blood Culture - Preliminary Blood NO GROWTH AFTER 3 DAYS 10/11/17 Unknown MRSA Culture (Admit) - Final Nose Lab Studies 10/14/17 10/14/17 10/14/17 Range/Units 12:23 06:20 06:16 WBC 12.6 H (4.8-10.8) K/uL RBC 4.42 (4.40-5.90) Mil/uL Hgb 12.7 (12.0-18.0) g/dL Hct 39.2 (35.0-51.0) % MCV 88.8 D (80.0-94.0) fL MCH 28.8 (27.0-31.0) pg MCHC 32.5 L (33.0-37.0) g/dL RDW 16.2 H (11.5-14.5) % Plt Count 256 (130-400) K/uL MPV 8.5 (7.2-11.7) fL Neut % (Auto) 72.1 (50.0-75.0) % Lymph % (Auto) 16.7 L (20.0-40.0) % [place] % (Auto) 8.5 (0.0-10.0) % Eos % (Auto) 2.4 (0.0-4.0) % Baso % (Auto) 0.3 (0.0-2.0) % Neut # 9.1 H (1.8-7.0) K/uL Lymph # 2.1 (1.0-4.3) K/uL [place] # 1.1 H (0.0-0.8) K/uL Eos # 0.3 (0.0-0.7) K/uL Baso # 0.0 (0.0-0.2) K/uL Sodium 156 H (132-148) mmol/L Potassium 3.9 (3.6-5.2) mmol/L Chloride 122 H (98-107) mmol/L Carbon Dioxide 29 (22-30) mmol/L Anion Gap 8 L (10-20) BUN 41 H (9-20) mg/dL Creatinine 0.8 (0.8-1.5) mg/dL Est GFR ( Amer) > 60 Est GFR (Non-Af Amer) > 60 POC Glucose (mg/dL) 112 H (65-110) mg/dL Random Glucose 132 H (75-110) mg/dL Calcium 8.5 L (8.6-10.4) mg/dl Phosphorus 3.0 (2.5-4.5) mg/dL Magnesium 2.6 H (1.6-2.3) mg/dL Total Bilirubin 0.4 (0.2-1.3) mg/dL AST 108 H D (17-59) U/L ALT 122 H D (21-72) U/L Alkaline Phosphatase 125 (38-126) U/L Total Protein 6.2 L (6.3-8.3) g/dL Albumin 2.5 L (3.5-5.0) g/dL Globulin 3.7 (2.2-3.9) gm/dL Albumin/Globulin Ratio 0.7 L (1.0-2.1) Random Vancomycin ug/mL Ur L.pneumophila Ag (NEGATIVE) 10/14/17 10/14/17 10/13/17 Range/Units 06:16 05:33 23:47 WBC (4.8-10.8) K/uL RBC (4.40-5.90) Mil/uL Hgb (12.0-18.0) g/dL Hct (35.0-51.0) % MCV (80.0-94.0) fL MCH (27.0-31.0) pg MCHC (33.0-37.0) g/dL RDW (11.5-14.5) % Plt Count (130-400) K/uL MPV (7.2-11.7) fL Neut % (Auto) (50.0-75.0) % Lymph % (Auto) (20.0-40.0) % [place] % (Auto) (0.0-10.0) % Eos % (Auto) (0.0-4.0) % Baso % (Auto) (0.0-2.0) % Neut # (1.8-7.0) K/uL Lymph # (1.0-4.3) K/uL [place] # (0.0-0.8) K/uL Eos # (0.0-0.7) K/uL Baso # (0.0-0.2) K/uL Sodium (132-148) mmol/L Potassium (3.6-5.2) mmol/L Chloride (98-107) mmol/L Carbon Dioxide (22-30) mmol/L Anion Gap (10-20) BUN (9-20) mg/dL Creatinine (0.8-1.5) mg/dL Est GFR ( Amer) Est GFR (Non-Af Amer) POC Glucose (mg/dL) 126 H 93 (65-110) mg/dL Random Glucose (75-110) mg/dL Calcium (8.6-10.4) mg/dl Phosphorus (2.5-4.5) mg/dL Magnesium (1.6-2.3) mg/dL Total Bilirubin (0.2-1.3) mg/dL AST (17-59) U/L ALT (21-72) U/L Alkaline Phosphatase (38-126) U/L Total Protein (6.3-8.3) g/dL Albumin (3.5-5.0) g/dL Globulin (2.2-3.9) gm/dL Albumin/Globulin Ratio (1.0-2.1) Random Vancomycin 12.56 ug/mL Ur L.pneumophila Ag (NEGATIVE) 10/13/17 Range/Units 19:45 WBC (4.8-10.8) K/uL RBC (4.40-5.90) Mil/uL Hgb (12.0-18.0) g/dL Hct (35.0-51.0) % MCV (80.0-94.0) fL MCH (27.0-31.0) pg MCHC (33.0-37.0) g/dL RDW (11.5-14.5) % Plt Count (130-400) K/uL MPV (7.2-11.7) fL Neut % (Auto) (50.0-75.0) % Lymph % (Auto) (20.0-40.0) % [place] % (Auto) (0.0-10.0) % Eos % (Auto) (0.0-4.0) % Baso % (Auto) (0.0-2.0) % Neut # (1.8-7.0) K/uL Lymph # (1.0-4.3) K/uL [place] # (0.0-0.8) K/uL Eos # (0.0-0.7) K/uL Baso # (0.0-0.2) K/uL Sodium (132-148) mmol/L Potassium (3.6-5.2) mmol/L Chloride (98-107) mmol/L Carbon Dioxide (22-30) mmol/L Anion Gap (10-20) BUN (9-20) mg/dL Creatinine (0.8-1.5) mg/dL Est GFR ( Amer) Est GFR (Non-Af Amer) POC Glucose (mg/dL) (65-110) mg/dL Random Glucose (75-110) mg/dL Calcium (8.6-10.4) mg/dl Phosphorus (2.5-4.5) mg/dL Magnesium (1.6-2.3) mg/dL Total Bilirubin (0.2-1.3) mg/dL AST (17-59) U/L ALT (21-72) U/L Alkaline Phosphatase (38-126) U/L Total Protein (6.3-8.3) g/dL Albumin (3.5-5.0) g/dL Globulin (2.2-3.9) gm/dL Albumin/Globulin Ratio (1.0-2.1) Random Vancomycin ug/mL Ur L.pneumophila Ag Negative (NEGATIVE) Laboratory Results - last 24 hr 10/13/17 10/13/17 10/14/17 19:45 23:47 05:33 WBC RBC Hgb Hct MCV MCH MCHC RDW Plt Count MPV Neut % (Auto) Lymph % (Auto) [place] % (Auto) Eos % (Auto) Baso % (Auto) Neut # Lymph # [place] # Eos # Baso # Sodium Potassium Chloride Carbon Dioxide Anion Gap BUN Creatinine Est GFR ( Amer) Est GFR (Non-Af Amer) POC Glucose (mg/dL) 93 126 H Random Glucose Calcium Phosphorus Magnesium Total Bilirubin AST ALT Alkaline Phosphatase Total Protein Albumin Globulin Albumin/Globulin Ratio Random Vancomycin Ur L.pneumophila Ag Negative 10/14/17 10/14/17 10/14/17 06:16 06:16 06:20 WBC 12.6 H RBC 4.42 Hgb 12.7 Hct 39.2 MCV 88.8 D MCH 28.8 MCHC 32.5 L RDW 16.2 H Plt Count 256 MPV 8.5 Neut % (Auto) 72.1 Lymph % (Auto) 16.7 L [place] % (Auto) 8.5 Eos % (Auto) 2.4 Baso % (Auto) 0.3 Neut # 9.1 H Lymph # 2.1 [place] # 1.1 H Eos # 0.3 Baso # 0.0 Sodium 156 H Potassium 3.9 Chloride 122 H Carbon Dioxide 29 Anion Gap 8 L BUN 41 H Creatinine 0.8 Est GFR ( Amer) > 60 Est GFR (Non-Af Amer) > 60 POC Glucose (mg/dL) Random Glucose 132 H Calcium 8.5 L Phosphorus 3.0 Magnesium 2.6 H Total Bilirubin 0.4 AST 108 H D ALT 122 H D Alkaline Phosphatase 125 Total Protein 6.2 L Albumin 2.5 L Globulin 3.7 Albumin/Globulin Ratio 0.7 L Random Vancomycin 12.56 Ur L.pneumophila Ag 10/14/17 12:23 WBC RBC Hgb Hct MCV MCH MCHC RDW Plt Count MPV Neut % (Auto) Lymph % (Auto) [place] % (Auto) Eos % (Auto) Baso % (Auto) Neut # Lymph # [place] # Eos # Baso # Sodium Potassium Chloride Carbon Dioxide Anion Gap BUN Creatinine Est GFR ( Amer) Est GFR (Non-Af Amer) POC Glucose (mg/dL) 112 H Random Glucose Calcium Phosphorus Magnesium Total Bilirubin AST ALT Alkaline Phosphatase Total Protein Albumin Globulin Albumin/Globulin Ratio Random Vancomycin Ur L.pneumophila Ag Assessment/Plan (1) Pneumonia Current Visit: Yes Status: Acute (2) Respiratory failure Current Visit: Yes Status: Acute Attending/Attestation - Attestation I have personally seen and examined this patient.: Yes I have fully participated in the care of the patient.: Yes I have reviewed all pertinent clinical information: Yes Notes (Text): 10/14/17 18:53 pt with pneumonia getting better transfer to floor
--- NOTE | 2017-10-14 18:07 | CP.PCM.CON ---
Past Patient History - Infectious Disease Hx of Infectious Diseases: None - Past Medical History & Family History Past Medical History?: Yes - Past Social History Smoking Status: Unknown If Ever Smoked - CARDIAC Hx Hypertension: Yes - NEUROLOGICAL Hx Dementia: Yes - MUSCULOSKELETAL/RHEUMATOLOGICAL Other/Comment: Hemiplegia. Hemiparesis - PSYCHIATRIC Hx Substance Use: No (unknown) - SURGICAL HISTORY Other/Comment: Peg Tube - ANESTHESIA Hx Anesthesia: No Hx Anesthesia Reactions: No Hx Malignant Hyperthermia: No Has any member of the family had a problem w/ anesthesia?: No Meds Allergies/Adverse Reactions: Allergies Allergy/AdvReac Type Severity Reaction Status Date / Time No Known Allergies Allergy Unverified 10/11/17 11:54 - Medications Medications: Current Medications Albuterol/Ipratropium (Duoneb 3 Mg/0.5 Mg (3 Ml) Ud) 3 ml INH RQ6 [facility] Last Admin: 10/14/17 14:05 Dose: 3 ml Aspirin (Ecotrin) 81 mg PO DAILY [facility] Last Admin: 10/14/17 09:10 Dose: 81 mg Bisacodyl (Dulcolax) 10 mg [facility] DAILY PRN PRN Reason: Constipation Last Admin: 10/12/17 09:16 Dose: 10 mg Famotidine (Pepcid) 20 mg PO DAILY [facility] Last Admin: 10/14/17 09:10 Dose: 20 mg Heparin Sodium (Porcine) (Heparin) 5,000 units SC Q12H [facility] Last Admin: 10/14/17 17:38 Dose: 5,000 units Cefepime HCl 1 gm/ Sodium (Chloride) 50 mls @ 100 mls/hr IVPB DAILY [facility] Rosuvastatin Calcium (Crestor) 5 mg PO HS [facility] Last Admin: 10/13/17 21:30 Dose: 5 mg Results - Vital Signs Recent Vital Signs: Last Vital Signs Temp 97.4 F L 10/14/17 16:00 Pulse 98 H 10/14/17 17:00 Resp 22 10/14/17 17:00 BP 119/47 L 10/14/17 17:00 Pulse Ox 100 10/14/17 17:00 - Labs Result Diagrams: 10/14/17 06:20 10/14/17 06:16 Labs: Laboratory Results - last 24 hr 10/13/17 10/13/17 10/14/17 19:45 23:47 05:33 WBC RBC Hgb Hct MCV MCH MCHC RDW Plt Count MPV Neut % (Auto) Lymph % (Auto) [place] % (Auto) Eos % (Auto) Baso % (Auto) Neut # Lymph # [place] # Eos # Baso # Sodium Potassium Chloride Carbon Dioxide Anion Gap BUN Creatinine Est GFR ( Amer) Est GFR (Non-Af Amer) POC Glucose (mg/dL) 93 126 H Random Glucose Calcium Phosphorus Magnesium Total Bilirubin AST ALT Alkaline Phosphatase Total Protein Albumin Globulin Albumin/Globulin Ratio Random Vancomycin Ur L.pneumophila Ag Negative 10/14/17 10/14/17 10/14/17 06:16 06:16 06:20 WBC 12.6 H RBC 4.42 Hgb 12.7 Hct 39.2 MCV 88.8 D MCH 28.8 MCHC 32.5 L RDW 16.2 H Plt Count 256 MPV 8.5 Neut % (Auto) 72.1 Lymph % (Auto) 16.7 L [place] % (Auto) 8.5 Eos % (Auto) 2.4 Baso % (Auto) 0.3 Neut # 9.1 H Lymph # 2.1 [place] # 1.1 H Eos # 0.3 Baso # 0.0 Sodium 156 H Potassium 3.9 Chloride 122 H Carbon Dioxide 29 Anion Gap 8 L BUN 41 H Creatinine 0.8 Est GFR ( Amer) > 60 Est GFR (Non-Af Amer) > 60 POC Glucose (mg/dL) Random Glucose 132 H Calcium 8.5 L Phosphorus 3.0 Magnesium 2.6 H Total Bilirubin 0.4 AST 108 H D ALT 122 H D Alkaline Phosphatase 125 Total Protein 6.2 L Albumin 2.5 L Globulin 3.7 Albumin/Globulin Ratio 0.7 L Random Vancomycin 12.56 Ur L.pneumophila Ag 10/14/17 12:23 WBC RBC Hgb Hct MCV MCH MCHC RDW Plt Count MPV Neut % (Auto) Lymph % (Auto) [place] % (Auto) Eos % (Auto) Baso % (Auto) Neut # Lymph # [place] # Eos # Baso # Sodium Potassium Chloride Carbon Dioxide Anion Gap BUN Creatinine Est GFR ( Amer) Est GFR (Non-Af Amer) POC Glucose (mg/dL) 112 H Random Glucose Calcium Phosphorus Magnesium Total Bilirubin AST ALT Alkaline Phosphatase Total Protein Albumin Globulin Albumin/Globulin Ratio Random Vancomycin Ur L.pneumophila Ag
--- NOTE | 2017-10-14 19:28 | CP.PCM.PN ---
Subjective - Date & Time of Evaluation Date of Evaluation: 10/14/17 Time of Evaluation: 12:40 - Subjective Subjective: clinically same Objective - Vital Signs/Intake and Output Vital Signs (last 24 hours): Temp Pulse Resp BP Pulse Ox 97.4 F L 98 H 22 119/47 L 100 10/14/17 16:00 10/14/17 17:00 10/14/17 17:00 10/14/17 17:00 10/14/17 17:00 Intake and Output: 10/14/17 10/15/17 18:59 06:59 Intake Total 350 Balance 350 - Medications Medications: Current Medications Albuterol/Ipratropium (Duoneb 3 Mg/0.5 Mg (3 Ml) Ud) 3 ml INH RQ6 [facility] Last Admin: 10/14/17 14:05 Dose: 3 ml Aspirin (Ecotrin) 81 mg PO DAILY [facility] Last Admin: 10/14/17 09:10 Dose: 81 mg Bisacodyl (Dulcolax) 10 mg [place] DAILY PRN PRN Reason: Constipation Last Admin: 10/12/17 09:16 Dose: 10 mg Famotidine (Pepcid) 20 mg PO DAILY [facility] Last Admin: 10/14/17 09:10 Dose: 20 mg Heparin Sodium (Porcine) (Heparin) 5,000 units SC Q12H [facility] Last Admin: 10/14/17 17:38 Dose: 5,000 units Cefepime HCl 1 gm/ Sodium (Chloride) 50 mls @ 100 mls/hr IVPB DAILY [facility] Rosuvastatin Calcium (Crestor) 5 mg PO HS [facility] Last Admin: 10/13/17 21:30 Dose: 5 mg - Labs Labs: 10/14/17 06:20 10/14/17 06:16 PT 15.9 SECONDS (9.7-12.2) H 10/11/17 12:24 INR 1.4 10/11/17 12:24 APTT 30 SECONDS (21-34) 10/11/17 12:24 - Constitutional Appears: Well - Head Exam Head Exam: ATRAUMATIC, NORMAL INSPECTION, NORMOCEPHALIC - Eye Exam Eye Exam: EOMI, Normal appearance, PERRL Pupil Exam: NORMAL ACCOMODATION, PERRL - ENT Exam ENT Exam: Mucous Membranes Moist, Normal Exam - Neck Exam Neck Exam: Full ROM, Normal Inspection. absent: Lymphadenopathy - Respiratory Exam Respiratory Exam: Decreased Breath Sounds - Cardiovascular Exam Cardiovascular Exam: REGULAR RHYTHM, +S1, +S2 - GI/Abdominal Exam GI & Abdominal Exam: Soft, Diminished Bowel Sounds - Rectal Exam Rectal Exam: Deferred
--- NOTE | 2017-10-14 20:28 | US ---
EXAM: US Abdomen Complete EXAM DATE/TIME: Exam ordered 10/14/2017 11:33 AM CLINICAL HISTORY: 72 years old, male; Abnormal findings; Abnormal lab test; Other: Transaminitis; Prior surgery; Surgery type: Feeding tube TECHNIQUE: Real-time ultrasound of the abdomen (complete) with image documentation. COMPARISON: No relevant prior studies available. FINDINGS: Liver: There is coarsening of the liver echotexture. The liver measures 17 cm in craniocaudal span. The liver is mildly increased in echotexture. There is normal blood flow direction in the main portal vein. . Gallbladder: Tumefactive sludge is noted within the gallbladder. No gallstones. Common bile duct: The common bile duct measures 4 mm. No stones. No dilation. Pancreas: Not seen due to bowel gas Kidneys: The right kidney measures 10 x 6 x 5.5 cm. A simple cyst is noted in the lower pole of the right kidney measure 1.5 cm. The left kidney measures 10.4 x 4.7 x 4.4 cm. the upper pole the kidney is not clearly delineated. Spleen: The spleen measures 13.1 cm in craniocaudal span. Several nodular echogenic foci are noted within the spleen. The largest measures approximately 1.5 cm Aorta: The distal abdominal aorta is not well-seen due to bowel gas. Inferior vena cava: Unremarkable. IMPRESSION: 1. Hepatosplenomegaly 2. Several echogenic foci are noted within the spleen suggesting focal splenic lesions. Differential diagnostic considerations include hemangioma, round cell lesion or infection. CT or MR might be considered for more definitive characterization. 3. Tumefactive sludge within the gallbladder. 4. Right renal cyst
--- NOTE | 2017-10-14 22:19 | CARD ---
APPROVED REPORT EKG Measurement Heart [id number] MD [id number] <Conclusion> Normal sinus rhythm Nonspecific T wave abnormality Prolonged QT Abnormal ECG
--- NOTE | 2017-10-14 22:25 | CARD ---
APPROVED REPORT EKG Measurement Heart [id number] RI 100P49 [id number] <Conclusion> Sinus tachycardia with short RI with occasional premature ventricular complexes Nonspecific ST abnormality Abnormal ECG
[2017-10-15] MEDS: Albuterol-Ipratrop 3 mg / 0.5 (3 ml) UD INH SCH ×4 (01:45→20:50)
[2017-10-15] MEDS ORDERED: Cefepime 1 GM in Sodium Chloride 0.9% 50 ML IVPB SCH (10:00)
[2017-10-15 10:31] LABS: ARTERIAL BLOOD HGB O2 SAT 93.5 % (95.0-98.0); CARBOXYHEMOGLOBIN 1.8 % (0.5-1.5); DRAW SITE RBA; HHB 3.5 % (0.0-5.0); METHEMOGLOBIN 1.2 % (0.0-3.0)
--- NOTE | 2017-10-15 11:22 | CP.PCM.PN ---
Subjective - Date & Time of Evaluation Date of Evaluation: 10/15/17 Time of Evaluation: 08:00 - Subjective Subjective: sepsis improving less fever NAD Objective - Vital Signs/Intake and Output Vital Signs (last 24 hours): Temp Pulse Resp BP Pulse Ox 98.5 F 100 H 20 156/68 H 97 10/15/17 09:03 10/15/17 09:03 10/15/17 09:03 10/15/17 09:03 10/15/17 09:03 - Medications Medications: Current Medications Albuterol/Ipratropium (Duoneb 3 Mg/0.5 Mg (3 Ml) Ud) 3 ml INH RQ6 [facility] Last Admin: 10/15/17 01:45 Dose: 3 ml Aspirin (Ecotrin) 81 mg PO DAILY [facility] Last Admin: 10/15/17 10:55 Dose: 81 mg Bisacodyl (Dulcolax) 10 mg [place] DAILY PRN PRN Reason: Constipation Last Admin: 10/12/17 09:16 Dose: 10 mg Famotidine (Pepcid) 20 mg PO DAILY [facility] Last Admin: 10/15/17 10:55 Dose: 20 mg Heparin Sodium (Porcine) (Heparin) 5,000 units SC Q12H [facility] Last Admin: 10/15/17 05:15 Dose: 5,000 units Cefepime HCl 1 gm/ Sodium (Chloride) 50 mls @ 100 mls/hr IVPB DAILY [facility] Last Admin: 10/15/17 11:00 Dose: 100 mls/hr Dextrose (Dextrose 5% In Water 1000 Ml) 1,000 mls @ 70 mls/hr IV .[id number] [facility] Stop: 10/15/17 13:17 Last Admin: 10/15/17 00:00 Dose: 70 mls/hr Rosuvastatin Calcium (Crestor) 5 mg PO HS [facility] Last Admin: 10/15/17 00:00 Dose: 5 mg - Labs Labs: 10/14/17 06:20 10/14/17 06:16 PT 15.9 SECONDS (9.7-12.2) H 10/11/17 12:24 INR 1.4 10/11/17 12:24 APTT 30 SECONDS (21-34) 10/11/17 12:24 - Constitutional Appears: Non-toxic, Chronically Ill - Head Exam Head Exam: NORMOCEPHALIC - Eye Exam Eye Exam: PERRL - ENT Exam ENT Exam: Mucous Membranes Dry - Neck Exam Neck Exam: absent: Lymphadenopathy - Respiratory Exam Respiratory Exam: Decreased Breath Sounds - Cardiovascular Exam Cardiovascular Exam: REGULAR RHYTHM - GI/Abdominal Exam GI & Abdominal Exam: Distended, Soft Assessment and Plan (1) Hypotension Status: Acute (2) Pneumonia Status: Acute (3) Respiratory failure Status: Acute (4) Sepsis Status: Acute
[2017-10-15] MEDS: Cefepime IV 1 gm in Dextrose 1 GM/50 ML BAG IVPB SCH (11:42)
--- NOTE | 2017-10-15 19:16 | CP.PCM.PN ---
Subjective - Date & Time of Evaluation Date of Evaluation: 10/15/17 Time of Evaluation: 10:40 - Subjective Subjective: clinically same Objective - Vital Signs/Intake and Output Vital Signs (last 24 hours): Temp Pulse Resp BP Pulse Ox 98.3 F 106 H 20 145/68 95 10/15/17 15:00 10/15/17 16:00 10/15/17 15:00 10/15/17 15:00 10/15/17 15:00 Intake and Output: 10/15/17 10/16/17 18:59 06:59 Intake Total 960 Output Total 0 Balance 960 - Medications Medications: Current Medications Albuterol/Ipratropium (Duoneb 3 Mg/0.5 Mg (3 Ml) Ud) 3 ml INH RQ6 [facility] Last Admin: 10/15/17 13:06 Dose: 3 ml Aspirin (Ecotrin) 81 mg PO DAILY [facility] Last Admin: 10/15/17 10:55 Dose: 81 mg Bisacodyl (Dulcolax) 10 mg [place] DAILY PRN PRN Reason: Constipation Last Admin: 10/12/17 09:16 Dose: 10 mg Famotidine (Pepcid) 20 mg PO DAILY [facility] Last Admin: 10/15/17 10:55 Dose: 20 mg Heparin Sodium (Porcine) (Heparin) 5,000 units SC Q12H [facility] Last Admin: 10/15/17 18:05 Dose: 5,000 units Cefepime HCl (Maxipime Iv 1 Gm Premix) 1 gm in 50 mls @ 100 mls/hr IVPB Q12H [facility] Last Admin: 10/15/17 11:42 Dose: Not Given Dextrose (Dextrose 5% In Water 1000 Ml) 1,000 mls @ 50 mls/hr IV .Q20H [facility] Last Admin: 10/15/17 15:06 Dose: 50 mls/hr Rosuvastatin Calcium (Crestor) 5 mg PO HS [facility] Last Admin: 10/15/17 00:00 Dose: 5 mg - Labs Labs: 10/14/17 06:20 10/14/17 06:16 PT 15.9 SECONDS (9.7-12.2) H 10/11/17 12:24 INR 1.4 10/11/17 12:24 APTT 30 SECONDS (21-34) 10/11/17 12:24 - Constitutional Appears: Well - Head Exam Head Exam: ATRAUMATIC, NORMAL INSPECTION, NORMOCEPHALIC - Eye Exam Eye Exam: EOMI, Normal appearance, PERRL Pupil Exam: NORMAL ACCOMODATION, PERRL - ENT Exam ENT Exam: Mucous Membranes Moist, Normal Exam - Neck Exam Neck Exam: Full ROM, Normal Inspection. absent: Lymphadenopathy - Respiratory Exam Respiratory Exam: Decreased Breath Sounds - Cardiovascular Exam Cardiovascular Exam: REGULAR RHYTHM, +S1, +S2 - GI/Abdominal Exam GI & Abdominal Exam: Soft, Diminished Bowel Sounds - Rectal Exam Rectal Exam: Deferred
[2017-10-16] MEDS: Albuterol-Ipratrop 3 mg / 0.5 (3 ml) UD INH SCH ×3 (02:43→13:31)
[2017-10-16] MEDS: Cefepime IV 1 gm in Dextrose 1 GM/50 ML BAG IVPB SCH ×2 (04:10→12:24)
[2017-10-16 08:19] LABS: BASO # 0.1 K/uL (0.0-0.2); BASO % 0.7 % (0.0-2.0); EOS # 0.2 K/uL (0.0-0.7); EOS % 2.7 % (0.0-4.0); HEMATOCRIT 33.1 % (35.0-51.0); LYMPH # 1.8 K/uL (1.0-4.3); LYMPH % 20.2 % (20.0-40.0); MEAN CORPUSCULAR HEMOGLOBIN 28.6 pg (27.0-31.0); MEAN PLATELET VOLUME 8.4 fL (7.2-11.7); MONO % 11.1 % (0.0-10.0); RED CELL DISTRIBUTION WIDTH 15.5 % (11.5-14.5); WHITE BLOOD COUNT 8.9 K/uL (4.8-10.8)
[2017-10-16 08:21] VITALS: TEMP 98.8; O2SAT 95
[2017-10-16 08:31] LABS: MEAN CELL VOLUME 86.6 fL (80.0-94.0)
[2017-10-16 08:55] LABS: ALB/GLOB RATIO 0.9 (1.0-2.1); ALKALINE PHOSPHATASE 139 U/L (38-126); ALT/SGPT 202 U/L (21-72); AST/SGOT 217 U/L (17-59); BILIRUBIN,TOTAL 0.6 mg/dL (0.2-1.3); BLOOD UREA NITROGEN 24 mg/dL (9-20); CALCIUM 8.3 mg/dl (8.6-10.4); CARBON DIOXIDE 30 mmol/L (22-30); CHLORIDE 118 mmol/L (98-107); GFR AFRICAN-AMERICAN > 60; GLUCOSE,RANDOM 160 mg/dL (75-110); POTASSIUM 3.7 mmol/L (3.6-5.2); SODIUM 151 mmol/L (132-148); TOTAL PROTEIN 4.7 g/dL (6.3-8.3)
--- NOTE | 2017-10-16 14:06 | CP.PCM.PN ---
Subjective - Date & Time of Evaluation Date of Evaluation: 10/16/17 Time of Evaluation: 14:09 - Subjective Subjective: PT SEEN AND CLEARED BY DR. Jack FIELDS FOR D/C TO [facility] TODAY. PER DR. FIELDS HE SPOKE TO PT'S DAUGHTER, HA, ABOUT THE D/C AND SHE IS IN AGREEMENT WITH THE D/C TODAY TO [facility]. SPECIAL INSPECTOR DISCUSSED WITH DR. WHITE AND PER HIM CONTINUE CEFEPIME 1 GM IV Q12 HOURS X10 DAYS (FROM 10/17/17-10/26/17). DR. WHITE MADE AWARE OF PT'S DC AND OK. PT WILL BE D/C WITH [facility]; IF HE NEEDS FURTHER VENOUS ACCESS THAT CAN BE ADDRESSED BY DR. FIELDS WHILE THERE. SW TO ARRANGE TRANSPORTATION. NO FURTHER ORDERS. Objective - Vital Signs/Intake and Output Vital Signs (last 24 hours): Temp Pulse Resp BP Pulse Ox 98.8 F 101 H 20 135/71 95 10/16/17 08:20 10/16/17 10:25 10/16/17 08:20 10/16/17 10:25 10/16/17 08:20 - Medications Medications: Current Medications Albuterol/Ipratropium (Duoneb 3 Mg/0.5 Mg (3 Ml) Ud) 3 ml INH RQ6 [facility] Last Admin: 10/16/17 13:31 Dose: 3 ml Aspirin (Ecotrin) 81 mg PO DAILY [facility] Last Admin: 10/16/17 10:26 Dose: 81 mg Bisacodyl (Dulcolax) 10 mg [place] DAILY PRN PRN Reason: Constipation Last Admin: 10/12/17 09:16 Dose: 10 mg Famotidine (Pepcid) 20 mg PO DAILY [facility] Last Admin: 10/16/17 10:26 Dose: 20 mg Heparin Sodium (Porcine) (Heparin) 5,000 units SC Q12H [facility] Last Admin: 10/16/17 06:36 Dose: 5,000 units Cefepime HCl (Maxipime Iv 1 Gm Premix) 1 gm in 50 mls @ 100 mls/hr IVPB Q12H [facility] Last Admin: 10/16/17 12:24 Dose: 100 mls/hr Dextrose (Dextrose 5% In Water 1000 Ml) 1,000 mls @ 50 mls/hr IV .Q20H [facility] Last Admin: 10/16/17 10:24 Dose: 50 mls/hr Rosuvastatin Calcium (Crestor) 5 mg PO HS [facility] Last Admin: 10/15/17 22:33 Dose: 5 mg - Labs Labs: 10/16/17 08:12 10/16/17 08:12 PT 15.9 SECONDS (9.7-12.2) H 10/11/17 12:24 INR 1.4 10/11/17 12:24 APTT 30 SECONDS (21-34) 10/11/17 12:24
--- NOTE | 2017-10-16 15:17 | CP.PCM.PN ---
Subjective - Date & Time of Evaluation Date of Evaluation: 10/16/17 Time of Evaluation: 15:17 Objective - Vital Signs/Intake and Output Vital Signs (last 24 hours): Temp Pulse Resp BP Pulse Ox 98.8 F 101 H 20 135/71 95 10/16/17 08:20 10/16/17 10:25 10/16/17 08:20 10/16/17 10:25 10/16/17 08:20 - Medications Medications: Current Medications Albuterol/Ipratropium (Duoneb 3 Mg/0.5 Mg (3 Ml) Ud) 3 ml INH RQ6 [facility] Last Admin: 10/16/17 13:31 Dose: 3 ml Aspirin (Ecotrin) 81 mg PO DAILY [facility] Last Admin: 10/16/17 10:26 Dose: 81 mg Bisacodyl (Dulcolax) 10 mg [place] DAILY PRN PRN Reason: Constipation Last Admin: 10/12/17 09:16 Dose: 10 mg Famotidine (Pepcid) 20 mg PO DAILY [facility] Last Admin: 10/16/17 10:26 Dose: 20 mg Heparin Sodium (Porcine) (Heparin) 5,000 units SC Q12H [facility] Last Admin: 10/16/17 06:36 Dose: 5,000 units Cefepime HCl (Maxipime Iv 1 Gm Premix) 1 gm in 50 mls @ 100 mls/hr IVPB Q12H [facility] Last Admin: 10/16/17 12:24 Dose: 100 mls/hr Dextrose (Dextrose 5% In Water 1000 Ml) 1,000 mls @ 50 mls/hr IV .Q20H [facility] Last Admin: 10/16/17 10:24 Dose: 50 mls/hr Rosuvastatin Calcium (Crestor) 5 mg PO HS [facility] Last Admin: 10/15/17 22:33 Dose: 5 mg - Labs Labs: 10/16/17 08:12 10/16/17 08:12 PT 15.9 SECONDS (9.7-12.2) H 10/11/17 12:24 INR 1.4 10/11/17 12:24 APTT 30 SECONDS (21-34) 10/11/17 12:24
[2017-10-16 16:00] VITALS: PULSE 102
[2017-10-16 16:58] VITALS: BP 111/64
[2017-10-16 17:39] VITALS: RESP 20
--- NOTE | 2017-10-16 18:15 | CP.PCM.PN ---
Subjective - Date & Time of Evaluation Date of Evaluation: 10/16/17 Time of Evaluation: 09:00 - Subjective Subjective: pneumonia improving needs 14 days iv rx and follow up CXR Objective - Vital Signs/Intake and Output Vital Signs (last 24 hours): Temp Pulse Resp BP Pulse Ox 98.8 F 102 H 20 111/64 95 10/16/17 17:00 10/16/17 17:27 10/16/17 17:00 10/16/17 17:00 10/16/17 17:00 Intake and Output: 10/16/17 10/16/17 06:59 18:59 Intake Total 480 Balance 480 - Medications Medications: Current Medications Albuterol/Ipratropium (Duoneb 3 Mg/0.5 Mg (3 Ml) Ud) 3 ml INH RQ6 [facility] Last Admin: 10/16/17 13:31 Dose: 3 ml Aspirin (Ecotrin) 81 mg PO DAILY [facility] Last Admin: 10/16/17 10:26 Dose: 81 mg Bisacodyl (Dulcolax) 10 mg [place] DAILY PRN PRN Reason: Constipation Last Admin: 10/12/17 09:16 Dose: 10 mg Famotidine (Pepcid) 20 mg PO DAILY [facility] Last Admin: 10/16/17 10:26 Dose: 20 mg Heparin Sodium (Porcine) (Heparin) 5,000 units SC Q12H [facility] Last Admin: 10/16/17 06:36 Dose: 5,000 units Cefepime HCl (Maxipime Iv 1 Gm Premix) 1 gm in 50 mls @ 100 mls/hr IVPB Q12H [facility] Last Admin: 10/16/17 12:24 Dose: 100 mls/hr Dextrose (Dextrose 5% In Water 1000 Ml) 1,000 mls @ 50 mls/hr IV .Q20H [facility] Last Admin: 10/16/17 10:24 Dose: 50 mls/hr Rosuvastatin Calcium (Crestor) 5 mg PO HS [facility] Last Admin: 10/15/17 22:33 Dose: 5 mg - Labs Labs: 10/16/17 08:12 10/16/17 08:12 PT 15.9 SECONDS (9.7-12.2) H 10/11/17 12:24 INR 1.4 10/11/17 12:24 APTT 30 SECONDS (21-34) 10/11/17 12:24 - Constitutional Appears: Confused, Cachectic, Chronically Ill - Head Exam Head Exam: NORMOCEPHALIC - Eye Exam Eye Exam: absent: Scleral icterus - Neck Exam Neck Exam: absent: Lymphadenopathy - Respiratory Exam Respiratory Exam: Decreased Breath Sounds - Cardiovascular Exam Cardiovascular Exam: REGULAR RHYTHM - GI/Abdominal Exam GI & Abdominal Exam: Distended - Rectal Exam Rectal Exam: Deferred Assessment and Plan (1) Hypotension Status: Acute (2) Pneumonia Status: Acute (3) Respiratory failure Status: Acute (4) Sepsis Status: Acute
== END 2017-10-16 19:42 | DRG 871 ==
LOC: C.ER 11:35 → C.9E 13:51 → C.9I 14:40 → C.5S 10-15 07:30
PROVIDERS: ADMIT Internal Medicine Nephrology; ATTEND Internal Medicine Nephrology
PROC: 5A09457 Assistance with Respiratory Ventilation, 24-96 Consecutive Hours, Continuous Positive Airway Pressure (ICD-10-PCS; principal; 2017-10-11)
DX: A41.9 Sepsis, unspecified organism (principal); J96.01 Acute respiratory failure with hypoxia; J18.9 Pneumonia, unspecified organism; N17.9 Acute kidney failure, unspecified; I69.954 Hemiplegia and hemiparesis following unspecified cerebrovascular disease affecting left non-dominant side; R47.01 Aphasia; R65.20 Severe sepsis without septic shock; F03.90 Unspecified dementia, unspecified severity, without behavioral disturbance, psychotic disturbance, mood disturbance, and anxiety; Z93.1 Gastrostomy status; Z66 Do not resuscitate; I10 Essential (primary) hypertension; Q85.00 Neurofibromatosis, unspecified